=== PATIENT | male | born 1955 | race Caucasian/White ===

== ENCOUNTER 2016-11-04 09:37 | Outpatient (CLI) | payer MEDICARE ==
[2016-11-04 12:29] LABS: #Basophils 0.1 thou/uL (0.0-0.2); #Lymphocytes 2.7 thou/uL (1.20-3.40); #Monocytes 0.7 thou/uL (0.11-0.59); #Neutrophils 4.4 thou/uL (1.40-6.50); %Basophils 1.2 % (0.0-1.0); %Eosinophils 10.8 % (0.0-10.0); %Lymphocytes 30.2 % (21.0-51.0); %Monocytes 8.2 % (0.0-10.0); Hematocrit 37.4 % (42.0-52.0); Mean Platelet Volume 6.4 fL (7.4-10.4); Red Blood Cell (RBC) Count 3.82 mill/uL (4.70-6.10)
[2016-11-04 12:51] LABS: ALT (SGPT) 24 U/L (0-55); AST (SGOT) 19 U/L (5-34); Alkaline Phosphatase 74 U/L (40-150); Anion Gap 14 mmol/L (10-20); BUN (Urea Nitrogen) 37 mg/dL (8.4-25.7); Bilirubin, Total 0.4 mg/dL (0.2-1.2); Calc. Creatinine Clearance 0 mL/min (70-130); Calcium 8.8 mg/dL (7.8-10.44); Carbon Dioxide 25 mmol/L (22-29); Chloride 104 mmol/L (98-107); Estimated GFR-MDRD 26; Globulin 2.9 g/dL (2.4-3.5); LDL Cholesterol, Calculated 72 mg/dL; Protein, Total 6.5 g/dL (6.0-8.3)
[2016-11-04 12:56] LABS: Hemoglobin A1c 8.7 % (4.0-6.0)
== END 2016-11-04 09:38 | disposition home or self-care (01) ==
LOC: NAVSJIPCSP 09:37
PROVIDERS: ATTEND Internal Medicine
DX: E78.5 Hyperlipidemia, unspecified (principal); E11.59 Type 2 diabetes mellitus with other circulatory complications; Z79.899 Other long term (current) drug therapy
CPT/HCPCS: 36415; 80053; 80061; 83036; 85025

== ENCOUNTER 2017-02-05 11:40 | Outpatient (CLI) | payer MEDICAID, MEDICARE ==
[2017-02-05 12:45] LABS: Hemoglobin A1c 7.7 % (4.0-6.0)
[2017-02-05 12:58] LABS: Anion Gap 14 mmol/L (10-20); BUN (Urea Nitrogen) 28 mg/dL (8.4-25.7); Calc. Creatinine Clearance 0 mL/min (70-130); Carbon Dioxide 25 mmol/L (22-29); Chloride 105 mmol/L (98-107); Cholesterol 117 mg/dL (< 200 Desired); Estimated GFR-MDRD 29; Glucose 173 mg/dL (70-105); HDL Cholesterol 29 mg/dL (>60 Neg Risk); LDL Cholesterol, Calculated 61 mg/dL; Potassium 5.2 mmol/L (3.5-5.1); Sodium 139 mmol/L (136-145); Triglycerides 137 mg/dL (Less than 150)
== END 2017-02-05 11:41 | disposition home or self-care (01) ==
LOC: NAVSJIPCSP 11:40
PROVIDERS: ATTEND Internal Medicine
DX: E11.59 Type 2 diabetes mellitus with other circulatory complications (principal); N18.3 Chronic kidney disease, stage 3 (moderate); E78.5 Hyperlipidemia, unspecified
CPT/HCPCS: 36415; 80048; 80061; 83036

== ENCOUNTER 2017-02-10 10:40 | Outpatient (CLI) | payer MEDICARE ==
--- NOTE | 2017-02-10 13:53 | RAD ---
RIGHT SHOULDER 3 VIEWS: DATE: 02/01/15. INDICATION: Recent onset pain subsequent to fall. FINDINGS: There is degenerative change of the right shoulder, similar to 01/31/15 exam. No acute fracture or d islocation identified. IMPRESSION: No acute osseous abnormality. POS: FABIAN
== END 2017-02-10 10:41 | disposition home or self-care (01) ==
LOC: NAV RAD 10:40
PROVIDERS: ATTEND Emergency Medicine
DX: M25.511 Pain in right shoulder (principal)

== ENCOUNTER 2017-04-29 13:02 | Outpatient (CLI) | payer MEDICARE ==
[2017-04-29 13:46] LABS: Anion Gap 16 mmol/L (10-20); BUN (Urea Nitrogen) 31 mg/dL (8.4-25.7); Calc. Creatinine Clearance 0 mL/min (70-130); Calcium 8.5 mg/dL (7.8-10.44); Carbon Dioxide 23 mmol/L (22-29); Cardiac Risk 3.6 (Less than 4.5); Chloride 104 mmol/L (98-107); Cholesterol 135 mg/dl (< 200 Desired); Estimated GFR-MDRD 27; Glucose 263 mg/dL (70-105); HDL Cholesterol 37 mg/dL (>60 Neg Risk); LDL Cholesterol, Calculated 49 mg/dL; Potassium 4.8 mmol/L (3.5-5.1); Sodium 138 mmol/L (136-145); Triglycerides 245 mg/dL (Less than 150)
[2017-04-29 14:09] LABS: Hemoglobin A1c 8.6 % (4.0-6.0)
== END 2017-04-29 13:03 | disposition home or self-care (01) ==
LOC: NAVSJIPCSP 13:02
PROVIDERS: ATTEND Internal Medicine
DX: E11.22 Type 2 diabetes mellitus with diabetic chronic kidney disease (principal); N18.3 Chronic kidney disease, stage 3 (moderate); E11.59 Type 2 diabetes mellitus with other circulatory complications; Z79.899 Other long term (current) drug therapy
CPT/HCPCS: 36415; 80048; 80061; 83036

== ENCOUNTER 2017-05-20 09:38 | Outpatient (CLI) | payer MEDICARE | END 2017-05-20 09:39 | disposition home or self-care (01) | LOC: NAV DTY OP 09:38 | PROVIDERS: ATTEND Internal Medicine | DX: E11.59 Type 2 diabetes mellitus with other circulatory complications (principal); E66.9 Obesity, unspecified | CPT/HCPCS: 97802 ==

== ENCOUNTER 2018-09-12 08:20 | Emergency (ER) | payer MEDICARE ==
[2018-09-12] MEDS ORDERED: Nitroglycerin 0.4 MG TAB (25 Tab Bottle) ONE (08:57)
[2018-09-12 09:08] LABS: #Basophils 0.1 thou/uL (0.0-0.2); #Eosinphils 0.4 thou/uL (0.0-0.7); #Lymphocytes 1.7 thou/uL (1.20-3.40); #Monocytes 0.7 thou/uL (0.11-0.59); #Neutrophils 6.1 thou/uL (1.40-6.50); %Basophils 1.3 % (0.0-1.0); %Eosinophils 4.7 % (0.0-10.0); %Lymphocytes 18.6 % (21.0-51.0); %Monocytes 8.2 % (0.0-10.0); %Neutrophils 67.2 % (42.0-75.0); Hemoglobin 10.8 g/dL (14.0-18.0); Mean Corpuscular HGB CONC 31.2 g/dL (32.0-36.0); Mean Corpuscular Hemoglobin 28.9 pg (27.0-31.0); Mean Corpuscular Volume 92.5 fL (78.0-98.0); Mean Platelet Volume 6.3 fL (7.4-10.4); Platelet Count 211 thou/uL (130-400); Red Blood Cell (RBC) Count 3.73 mill/uL (4.70-6.10)
[2018-09-12 09:21] LABS: ALT (SGPT) 13 U/L (8-55); AST (SGOT) 15 U/L (5-34); Albumin 3.9 g/dL (3.4-4.8); Alkaline Phosphatase 78 U/L (40-150); Anion Gap 16 mmol/L (10-20); BUN (Urea Nitrogen) 31 mg/dL (8.4-25.7); Bilirubin, Total 0.4 mg/dL (0.2-1.2); CK (CPK) 74 U/L (30-200); Calc. Creatinine Clearance 0 mL/min (70-130); Calcium 9.1 mg/dL (7.8-10.44); Carbon Dioxide 24 mmol/L (23-31); Chloride 103 mmol/L (98-107); Estimated GFR-MDRD 20; Globulin 3.7 g/dL (2.4-3.5); Glucose 207 mg/dL (80-115); Potassium 4.5 mmol/L (3.5-5.1); Protein, Total 7.6 g/dL (5.8-8.1); Sodium 138 mmol/L (136-145)
[2018-09-12 09:23] LABS: CKMB 1.6 ng/mL (0-6.6); Troponin I 0.026 ng/mL (< 0.028)
--- NOTE | 2018-09-12 11:29 | RAD ---
CHEST PA AND LATERAL 2 VIEWS: HISTORY: A 63-year-old male with a history of chest pain. COMPARISON: 09/16/2017. FINDINGS: Postop midline sternotomy and coronary artery bypass changes. Mild cardiomegaly. Mild bilateral vas cular congestion, but no confluent pneumonia, overt edema, or pleural effusion. IMPRESSION: Mild cardiomegaly with postop midline sternotomy and mild vascular congestion. No pneumonia, edema, pleural effusion, or other acute process. Stable from prior study. POS: FABIAN
== END 2018-09-12 10:58 | disposition short-term general hospital (02) ==
LOC: NAV ERS 08:20
DX: R07.2 Precordial pain (principal); E66.9 Obesity, unspecified; I48.91 Unspecified atrial fibrillation; K21.9 Gastro-esophageal reflux disease without esophagitis; I25.10 Atherosclerotic heart disease of native coronary artery without angina pectoris; I50.9 Heart failure, unspecified; I13.2 Hypertensive heart and chronic kidney disease with heart failure and with stage 5 chronic kidney disease, or end stage renal disease; N18.6 End stage renal disease; E78.5 Hyperlipidemia, unspecified; M10.9 Gout, unspecified; Z87.891 Personal history of nicotine dependence; Z86.73 Personal history of transient ischemic attack (TIA), and cerebral infarction without residual deficits; Z79.899 Other long term (current) drug therapy; Z79.891 Long term (current) use of opiate analgesic; Z79.82 Long term (current) use of aspirin
CPT/HCPCS: 36415; 71046; 80053; 82553; 84484; 85025; 93005

== ENCOUNTER 2019-03-20 21:31 | Emergency (ER) | payer MEDICARE, MEDICAID ==
--- NOTE | 2019-03-20 22:41 | RAD ---
EXAM: Right Rib series with chest x-ray HISTORY: Rib pain after a dog jumped onto his chest 2 days ago COMPARISON: None FINDINGS: Single view of the chest shows an enlarged cardiomediastinal silhouette. The patient is st atus post sternotomy. There is no evidence of consolidation, mass, or pleural effusion. Multiple views of the right ribs shows no evidence of displaced rib fracture. No underlying pleural t hickening or pneumothorax are seen. IMPRESSION: 1. No evidence of displaced rib fracture. 2. No evidence of acute cardiopulmonary disease.
[2019-03-20] MEDS ORDERED: Lidocaine 5% Patch TD SCH (22:45)
[2019-03-21] MEDS ORDERED: Lidocaine Patch Removal 1 EACH TOP SCH (10:45)
== END 2019-03-20 23:09 | disposition home or self-care (01) ==
LOC: NAV ERS 21:31
DX: S20.211A Contusion of right front wall of thorax, initial encounter (principal); I25.10 Atherosclerotic heart disease of native coronary artery without angina pectoris; I25.2 Old myocardial infarction; I48.91 Unspecified atrial fibrillation; K21.9 Gastro-esophageal reflux disease without esophagitis; E11.9 Type 2 diabetes mellitus without complications; E78.5 Hyperlipidemia, unspecified; M10.9 Gout, unspecified; Z86.73 Personal history of transient ischemic attack (TIA), and cerebral infarction without residual deficits; Z87.891 Personal history of nicotine dependence; Z79.899 Other long term (current) drug therapy; Z79.82 Long term (current) use of aspirin; W54.1XXA Struck by dog, initial encounter

== ENCOUNTER 2019-07-02 22:04 | Emergency (ER) | payer MEDICARE, MEDICAID ==
--- NOTE | 2019-07-02 22:33 | RAD ---
XR Ribs Lt>=2 View W/PA CXR HISTORY: Fall with left rib pain. COMPARISON: None. FINDINGS: Heart size is enlarged with postop sternotomy changes. The lungs are clear of any infiltrat cale process. No pneumothorax or pleural effusion. No rib fractures are identified. IMPRESSION: No evidence of fracture.
[2019-07-02 23:32] LABS: #Basophils 0.1 thou/uL (0.0-0.2); #Eosinphils 0.4 thou/uL (0.0-0.7); #Lymphocytes 1.6 thou/uL (1.20-3.40); #Monocytes 0.6 thou/uL (0.11-0.59); #Neutrophils 5.4 thou/uL (1.40-6.50); %Basophils 1.1 % (0.0-1.0); %Eosinophils 4.8 % (0.0-10.0); %Lymphocytes 20.2 % (21.0-51.0); %Monocytes 6.8 % (0.0-10.0); %Neutrophils 67.2 % (42.0-75.0); Mean Corpuscular HGB CONC 32.3 g/dL (32.0-36.0); Mean Corpuscular Hemoglobin 30.1 pg (27.0-31.0); Mean Corpuscular Volume 93.2 fL (78.0-98.0); Mean Platelet Volume 6.3 fL (7.4-10.4); Platelet Count 149 thou/uL (130-400); RBC Distribution Width 14.8 % (11.5-14.5); White Blood Cell (WBC) Count 8.1 thou/uL (4.8-10.8)
[2019-07-02] MEDS ORDERED: HYDROcodone/Acetaminophen 5/325 mg Tablet ONE (23:47)
[2019-07-02 23:50] LABS: ALT (SGPT) 19 U/L (8-55); AST (SGOT) 22 U/L (5-34); Albumin 3.6 g/dL (3.4-4.8); Alkaline Phosphatase 86 U/L (40-150); Anion Gap 20 mmol/L (10-20); BUN (Urea Nitrogen) 51 mg/dL (8.4-25.7); Bilirubin, Total 0.4 mg/dL (0.2-1.2); Calc. Creatinine Clearance 0 mL/min (70-130); Carbon Dioxide 23 mmol/L (23-31); Chloride 100 mmol/L (98-107); Estimated GFR-MDRD 14; Globulin 3.6 g/dL (2.4-3.5); Glucose 265 mg/dL (80-115); Potassium 4.9 mmol/L (3.5-5.1); Protein, Total 7.2 g/dL (5.8-8.1); Sodium 138 mmol/L (136-145)
[2019-07-02 23:55] LABS: INR-International Normal Ratio 1.2; Prothrombin Time 15.1 SEC (12.0-14.7)
[2019-07-03] MEDS ORDERED: Sodium Chloride 0.9% 250 ML 250 ML ONE (02:00)
--- NOTE | 2019-07-03 08:09 | CT ---
PRELIMINARY REPORT/[facility]/EMERGENCY AFTER HOURS PROCEDURE: EXAM: CT Chest Without Contrast EXAM DATE/TIME: 07/03/2019 12:19 AM CLINICAL HISTORY: 64 years old, male; Injury or trauma; Initial encounter; Luq; Blunt trauma (contusions or hematomas); Injury date: 07/02/2019; Injury details: Fall; Pain to left ribs; SOB; Prior surgery; Surgery date: 6 + months; Surgery type: Triple bypass in 2011; Patient HX: Diabetic; Gfr 14; Creatine 4.26 TECHNIQUE: Imaging protocol: Computed tomography of the chest without contrast. Radiation optimization: All CT scans at this facility use at least one of these dose optimization pawel hniques: automated exposure control; mA and/or kV adjustment per patient size (includes targeted exam s where dose is matched to clinical indication); or iterative reconstruction. COMPARISON: No relevant prior studies available. FINDINGS: Lungs: Normal. Pleural space: Normal. Heart: Changes of prior sternotomy and CABG. Mild four-chamber cardiac enlargement. Aorta: No aortic aneurysm. Lymph nodes: Several small lymph nodes within the mediastinum, likely reactive. Bones/joints: Multilevel thoracic spine degenerative changes. Soft tissues: Normal. IMPRESSION: No acute cardiopulmonary abnormality. EXAM: CT Abdomen and Pelvis Without Contrast EXAM DATE/TIME: 07/03/2019 12:19 AM CLINICAL HISTORY: 64 years old, male; Injury or trauma; Initial encounter; Luq; Blunt trauma (contusions or hematomas); Injury date: 07/02/2019; Injury details: Fall; Pain to left ribs; SOB; Prior surgery; Surgery date: 6 + months; Surgery type: Triple bypass in 2011; Patient HX: Diabetic; Gfr 14; Creatine 4.26 TECHNIQUE: Imaging protocol: Computed tomography of the abdomen and pelvis without contrast. COMPARISON: No relevant prior studies available. FINDINGS: Liver: Normal. Gallbladder and bile ducts: Normal Pancreas: Normal. Spleen: Normal. Adrenals: Normal. Kidneys and ureters: Multiple bilateral simple renal cysts, the largest on the left measuring approxi mately 5.7 cm in diameter. Stomach and bowel: Colonic diverticulosis. Appendix: Appendix is normal. Intraperitoneal space: Unremarkable. No free air. No significant fluid collection. Vasculature: Atherosclerotic disease of the abdominal aorta and iliac arteries. Lymph nodes: Unremarkable. No enlarged lymph nodes. Bladder: Unremarkable as visualized. Reproductive: Unremarkable as visualized. Bones/joints: Degenerative changes of the hips and sacroiliac joints. Multilevel lumbar spine degener ative changes. Soft tissues: Small fat containing umbilical hernia. IMPRESSION: No acute abdominal or pelvic abnormality. Thank you for allowing us to participate in the care of your patient. Dictated and Authenticated by: Lane Barksdale MD 07/03/2019 1:36 AM Central Time ([place] & [place]) FINAL REPORT CT CHEST AND ABDOMEN AND PELVIS WITHOUT IV CONTRAST: Date: 07/03/19 FINDINGS/IMPRESSION: CT chest shows no evidence of acute injury or abnormality. CT abdomen and pelvis shows numerous renal cystic lesions. Several of these cystic lesions show some rim calcification. There is no hydronephrosis. There is no evidence of solid organ injury. Bowel loop s unremarkable. No free fluid. Bony pelvis appears intact. No evidence of acute injury or abnormality. I am in agreement with the preliminary report issued by [facility]. CT THORACIC AND LUMBAR SPINE: Sagittal and coronal images of thoracic and lumbar spine obtained. There are moderate degenerative ch anges with bridging osteophytes in the mid and lower thoracic spine. No compression deformity. No tommy dence of acute fracture. IMPRESSION: No evidence of thoracic or lumbar spine fracture. POS: OFF
== END 2019-07-03 02:25 | disposition home or self-care (01) ==
LOC: NAV ERS 22:04
DX: S20.212A Contusion of left front wall of thorax, initial encounter (principal); N17.9 Acute kidney failure, unspecified; I25.10 Atherosclerotic heart disease of native coronary artery without angina pectoris; I50.9 Heart failure, unspecified; I13.2 Hypertensive heart and chronic kidney disease with heart failure and with stage 5 chronic kidney disease, or end stage renal disease; N18.6 End stage renal disease; E11.22 Type 2 diabetes mellitus with diabetic chronic kidney disease; I25.2 Old myocardial infarction; I49.9 Cardiac arrhythmia, unspecified; J45.909 Unspecified asthma, uncomplicated; I48.91 Unspecified atrial fibrillation; E78.5 Hyperlipidemia, unspecified; E78.00 Pure hypercholesterolemia, unspecified; K21.9 Gastro-esophageal reflux disease without esophagitis; M10.9 Gout, unspecified; Z99.2 Dependence on renal dialysis; Z87.891 Personal history of nicotine dependence; Z86.73 Personal history of transient ischemic attack (TIA), and cerebral infarction without residual deficits; W01.0XXA Fall on same level from slipping, tripping and stumbling without subsequent striking against object, initial encounter
CPT/HCPCS: 36415; 71250; 74177; 80053; 85025; 85610; J7050

== ENCOUNTER 2019-09-10 11:30 | Outpatient (CLI) | payer MEDICARE, MEDICAID ==
--- NOTE | 2019-09-10 11:59 | RAD ---
EXAM: Lumbar spine 3 views: HISTORY: Low back pain with left lower extremity radiculopathy COMPARISON: MRI, 08/17/2019 FINDINGS: No evidence for acute fracture or dislocation involving the visualized spine. There are disc osteophytosis and facet arthrosis changes. No evidence for malalignment. No evidence for a bone lesion. IMPRESSION: Severe spondylosis.. No significant acute process.
== END 2019-09-10 11:31 | disposition home or self-care (01) ==
LOC: NAV RAD 11:30
PROVIDERS: ATTEND Nurse Practitioner Adult Health
DX: M54.5 Low back pain (principal); M47.816 Spondylosis without myelopathy or radiculopathy, lumbar region
CPT/HCPCS: 72100

== ENCOUNTER 2019-10-13 21:37 | Emergency (ER) | payer MEDICARE, MEDICAID ==
[2019-10-13] MEDS ORDERED: Acetaminophen 325 MG TAB ONE (22:24)
--- NOTE | 2019-10-13 23:25 | RAD ---
EXAM: Two views chest PROVIDED CLINICAL HISTORY: Cough COMPARISON: 08/17/2019 FINDINGS: Postsurgical changes related to CABG are again noted. Cardiac silhouette is magnified by projection. The pulmonary vasculature is within normal limits. The lungs are clear. The osseous structures have a normal appearance. Chest is stable when compared to the prior study. IMPRESSION: No acute cardiopulmonary process.
[2019-10-13] MEDS ORDERED: Oseltamivir 6 MG/ML ORAL SUSP ONE ×2 (23:40→23:49)
[2019-10-13] MEDS ORDERED: Promethazine 25 MG TAB ONE (23:50)
== END 2019-10-13 23:55 | disposition home or self-care (01) ==
LOC: NAV ERS 21:37
DX: B34.9 Viral infection, unspecified (principal); I13.2 Hypertensive heart and chronic kidney disease with heart failure and with stage 5 chronic kidney disease, or end stage renal disease; I25.10 Atherosclerotic heart disease of native coronary artery without angina pectoris; I50.9 Heart failure, unspecified; N18.6 End stage renal disease; I25.2 Old myocardial infarction; I49.9 Cardiac arrhythmia, unspecified; I48.91 Unspecified atrial fibrillation; K21.9 Gastro-esophageal reflux disease without esophagitis; E78.5 Hyperlipidemia, unspecified; E78.00 Pure hypercholesterolemia, unspecified; M10.9 Gout, unspecified; J45.909 Unspecified asthma, uncomplicated; Z87.891 Personal history of nicotine dependence; Z79.899 Other long term (current) drug therapy; Z79.82 Long term (current) use of aspirin; Z79.4 Long term (current) use of insulin; Z99.2 Dependence on renal dialysis; Z86.73 Personal history of transient ischemic attack (TIA), and cerebral infarction without residual deficits
CPT/HCPCS: 71046; 87804; Q0169

== ENCOUNTER 2019-11-04 15:35 | Outpatient (CLI) | payer MEDICARE, MEDICAID ==
--- NOTE | 2019-11-04 15:57 | RAD ---
EXAM: 3 views of the right shoulder HISTORY: Shoulder pain COMPARISON: None FINDINGS: There is no evidence of acute fracture or dislocation. No degenerative changes are present. No soft tissue swelling is seen. The visualized thorax is unremarkable. IMPRESSION: No evidence of acute osseous abnormality.
== END 2019-11-04 15:36 | disposition home or self-care (01) ==
LOC: NAV RAD 15:35
PROVIDERS: ATTEND Internal Medicine
DX: M25.511 Pain in right shoulder (principal)

== ENCOUNTER 2020-05-02 21:32 | Emergency (ER) | payer MEDICARE, MEDICAID, OTHER ==
[2020-05-02] MEDS ORDERED: Acetaminophen 500 MG TAB ONE (21:44)
[2020-05-02] MEDS ORDERED: Ondansetron PF 4 MG/2 ML Vial ONE (21:45)
--- NOTE | 2020-05-02 22:08 | RAD ---
PORTABLE CHEST: 05/02/20 HISTORY: Chest pain. COMPARISON: 11/21/19 chest film. Cardiomegaly and postop sternotomy change again noted. There is mild vascular congestion. No infiltra te or effusion. IMPRESSION: Cardiomegaly and mild vascular congestion. POS: AGW
[2020-05-02 22:13] LABS: Bilirubin Negative (Negative); Blood, Urine Trace (Negative); Clarity Clear (Clear); Glucose, Urine (Dipstick) Negative (Negative); Ketone, Urine Negative (Negative); Leukocyte Negative (Negative); Nitrite Negative (Negative); Protein, Urine (Dipstick) 100 mg/dL (Neg-Trace); Specific Gravity, Urine 1.015 (1.005-1.030); Urobilinogen 0.2 mg/dL (Less than 2); pH, Urine 5.5 (5.0-9.0)
[2020-05-02 22:17] LABS: ALT (SGPT) 62 U/L (8-55); AST (SGOT) 89 U/L (5-34); Albumin 3.8 g/dL (3.4-4.8); Alkaline Phosphatase 114 U/L (40-110); Anion Gap 22 mmol/L (10-20); BUN (Urea Nitrogen) 41 mg/dL (8.4-25.7); Bilirubin, Total 0.5 mg/dL (0.2-1.2); Calc. Creatinine Clearance 0 mL/min (70-130); Calcium 9.2 mg/dL (7.8-10.44); Carbon Dioxide 20 mmol/L (23-31); Chloride 100 mmol/L (98-107); Estimated GFR-MDRD 16; Globulin 3.8 g/dL (2.4-3.5); Glucose 171 mg/dL (80-115); Potassium 4.1 mmol/L (3.5-5.1); Protein, Total 7.6 g/dL (5.8-8.1); Sodium 138 mmol/L (136-145)
[2020-05-02 22:18] LABS: Bacteria/HPF None Seen HPF (None Seen); Mucous/LPF Rare LPF (<2+); RBC/HPF 0-3 HPF (0-3)
[2020-05-02 22:25] LABS: Hemoglobin 11.2 g/dL (14.0-18.0); Mean Corpuscular HGB CONC 30.5 g/dL (32.0-36.0); Mean Corpuscular Hemoglobin 30.2 pg (27.0-31.0); Mean Corpuscular Volume 99.2 fL (78.0-98.0); Red Blood Cell (RBC) Count 3.72 mill/uL (4.70-6.10); White Blood Cell (WBC) Count 8.3 thou/uL (4.8-10.8)
[2020-05-02 22:26] LABS: Mean Platelet Volume 6.7 fL (7.4-10.4); Platelet Count 174 thou/uL (130-400); RBC Distribution Width 15.2 % (11.5-14.5)
[2020-05-02 22:27] LABS: #Basophils 0.1 thou/uL (0.0-0.2); #Eosinphils 0.1 thou/uL (0.0-0.7); #Lymphocytes 0.3 thou/uL (1.20-3.40); #Monocytes 0.1 thou/uL (0.11-0.59); #Neutrophils 7.7 thou/uL (1.40-6.50); %Basophils 0.9 % (0.0-1.0); %Eosinophils 0.7 % (0.0-10.0); %Lymphocytes 4.1 % (21.0-51.0); %Monocytes 1.7 % (0.0-10.0); %Neutrophils 92.7 % (42.0-75.0)
[2020-05-02 22:38] LABS: CKMB 2.1 ng/mL (0-6.6)
[2020-05-02] MEDS ORDERED: Sodium Chloride 0.9% 500 ML ONE (22:47)
[2020-05-02] MEDS ORDERED: cefTRIAXone\\ROCEPHIN 1 GM VIAL ONE (22:48)
[2020-05-02] MEDS ORDERED: Sodium Chloride 0.9% 100 ML ONE (22:48)
[2020-05-02] MEDS ORDERED: Aspirin Chewable 81 MG TAB ONE (22:55)
== END 2020-05-02 23:03 | disposition home or self-care (01) ==
LOC: NAV ERS 21:32
DX: R07.9 Chest pain, unspecified (principal); R74.0 Nonspecific elevation of levels of transaminase and lactic acid dehydrogenase [LDH]; R50.9 Fever, unspecified; Z20.828 Contact with and (suspected) exposure to other viral communicable diseases; I25.10 Atherosclerotic heart disease of native coronary artery without angina pectoris; I13.2 Hypertensive heart and chronic kidney disease with heart failure and with stage 5 chronic kidney disease, or end stage renal disease; I50.9 Heart failure, unspecified; N18.6 End stage renal disease; I25.2 Old myocardial infarction; K21.9 Gastro-esophageal reflux disease without esophagitis; E78.5 Hyperlipidemia, unspecified; M10.9 Gout, unspecified; Z86.73 Personal history of transient ischemic attack (TIA), and cerebral infarction without residual deficits; F32.9 Major depressive disorder, single episode, unspecified; Z87.891 Personal history of nicotine dependence; Z79.899 Other long term (current) drug therapy; Z79.82 Long term (current) use of aspirin; Z79.4 Long term (current) use of insulin
CPT/HCPCS: 36416; 71045; 80053; 81003; 81015; 82553; 83605; 83880; 84484; 85025; 87040; 87086; 93005; 94760; 96374; 96375; J0696; J2405; J3490; J7030

== ENCOUNTER 2020-05-27 20:18 | Emergency (ER) | payer MEDICARE, MEDICAID ==
[2020-05-27 21:02] LABS: #Basophils 0.1 thou/uL (0.0-0.2); #Eosinphils 0.3 thou/uL (0.0-0.7); #Lymphocytes 1.8 thou/uL (1.20-3.40); #Monocytes 0.6 thou/uL (0.11-0.59); #Neutrophils 6.3 thou/uL (1.40-6.50); %Basophils 0.9 % (0.0-1.0); %Eosinophils 2.9 % (0.0-10.0); %Lymphocytes 19.7 % (21.0-51.0); %Monocytes 6.6 % (0.0-10.0); %Neutrophils 69.8 % (42.0-75.0); Hemoglobin 9.6 g/dL (14.0-18.0); Mean Corpuscular HGB CONC 30.7 g/dL (32.0-36.0); Mean Corpuscular Hemoglobin 29.7 pg (27.0-31.0); Mean Corpuscular Volume 96.6 fL (78.0-98.0); Platelet Count 161 thou/uL (130-400); RBC Distribution Width 14.9 % (11.5-14.5); Red Blood Cell (RBC) Count 3.23 mill/uL (4.70-6.10); White Blood Cell (WBC) Count 9.1 thou/uL (4.8-10.8)
[2020-05-27] MEDS ORDERED: Aspirin Chewable 81 MG TAB ONE (21:07)
[2020-05-27 21:19] LABS: ALT (SGPT) 14 U/L (8-55); AST (SGOT) 16 U/L (5-34); Albumin 3.7 g/dL (3.4-4.8); Alkaline Phosphatase 85 U/L (40-110); Anion Gap 16 mmol/L (10-20); BUN (Urea Nitrogen) 43 mg/dL (8.4-25.7); Bilirubin, Total 0.4 mg/dL (0.2-1.2); Calc. Creatinine Clearance 0 mL/min (70-130); Calcium 8.7 mg/dL (7.8-10.44); Carbon Dioxide 25 mmol/L (23-31); Chloride 101 mmol/L (98-107); Estimated GFR-MDRD 15; Globulin 3.5 g/dL (2.4-3.5); Glucose 166 mg/dL (80-115); Protein, Total 7.2 g/dL (5.8-8.1); Sodium 138 mmol/L (136-145)
[2020-05-27 21:37] LABS: CKMB 1.1 ng/mL (0-6.6)
[2020-05-27] MEDS ORDERED: Enoxaparin Sodium 100 MG/ML SYRINGE ONE (22:08)
--- NOTE | 2020-05-27 22:09 | RAD ---
TWO VIEWS OF THE CHEST: 05/27/20 COMPARISON: 05/02/20. HISTORY: Chest pain with shortness of breath. FINDINGS: Stable midline sternotomy wires and prominence of the cardiac silhouette. Stable mild pulmonary vascu lar prominence. No pneumothorax, pleural fluid, focal consolidation, or alveolar edema. IMPRESSION: Prominent cardiac silhouette with pulmonary vascular congestion. POS: CARY
[2020-05-27 23:51] LABS: Bilirubin Negative (Negative); Blood, Urine Negative (Negative); Clarity Clear (Clear); Glucose, Urine (Dipstick) Negative (Negative); Ketone, Urine Negative (Negative); Leukocyte Negative (Negative); Nitrite Negative (Negative); Protein, Urine (Dipstick) 100 mg/dL (Neg-Trace)
[2020-05-27 23:55] LABS: Bacteria/HPF None Seen HPF (None Seen); RBC/HPF None Seen HPF (0-3); Squamous Epithelial None Seen HPF (0-3); WBC/HPF None Seen HPF (0-3)
[2020-05-28 00:47] LABS: Troponin I 0.037 ng/mL (< 0.028)
[2020-05-28 03:48] LABS: Troponin I 0.034 ng/mL (< 0.028)
== END 2020-05-28 04:46 | disposition short-term general hospital (02) ==
LOC: NAV ERS 20:18
DX: I24.9 Acute ischemic heart disease, unspecified (principal); I13.2 Hypertensive heart and chronic kidney disease with heart failure and with stage 5 chronic kidney disease, or end stage renal disease; N18.6 End stage renal disease; I50.9 Heart failure, unspecified; I25.10 Atherosclerotic heart disease of native coronary artery without angina pectoris; I25.2 Old myocardial infarction; I48.91 Unspecified atrial fibrillation; K21.9 Gastro-esophageal reflux disease without esophagitis; E11.9 Type 2 diabetes mellitus without complications; E78.5 Hyperlipidemia, unspecified; M10.9 Gout, unspecified; J45.909 Unspecified asthma, uncomplicated; F32.9 Major depressive disorder, single episode, unspecified; Z79.4 Long term (current) use of insulin; Z79.82 Long term (current) use of aspirin; Z79.51 Long term (current) use of inhaled steroids; Z79.899 Other long term (current) drug therapy; Z87.891 Personal history of nicotine dependence
CPT/HCPCS: 71046; 80053; 81003; 81015; 82553; 83880; 84443; 84484; 85025; 85379; 87070; 87205; 93005; 96372; J1650

== ENCOUNTER 2021-02-03 17:00 | Inpatient (IN) | payer MEDICARE, MEDICAID ==
[2021-02-03 17:27] VITALS: BMI 37.6
[2021-02-03] MEDS ORDERED: Ondansetron ODT 4 MG TAB PO PRN (18:41)
[2021-02-03] MEDS ORDERED: Benzonatate 100 MG CAP PO PRN (18:44)
[2021-02-03] MEDS ORDERED: Meclizine HCl 25 MG TAB PO PRN (18:44)
[2021-02-03] MEDS ORDERED: Furosemide 40 MG TAB PO PRN (18:44)
[2021-02-03] MEDS ORDERED: Dextrose 50% Abboject 50 ML SYRINGE SLOW IVP PRN (18:47)
[2021-02-03] MEDS ORDERED: Loratadine 10 MG TAB PO PRN (18:54)
[2021-02-03] MEDS ORDERED: Ventolin HFA Inhaler 60 PUFF INHALER INH PRN (19:03)
[2021-02-03 20:34] LABS: Bilirubin Negative (Negative); Blood, Urine Negative (Negative); Clarity Clear (Clear); Glucose, Urine (Dipstick) Negative (Negative); Ketone, Urine Negative (Negative); Leukocyte Negative (Negative); Nitrite Negative (Negative); Protein, Urine (Dipstick) > or equal to 300 mg/dL (Neg-Trace); Urobilinogen 0.2 mg/dL (Less than 2)
[2021-02-03 20:56] LABS: Bacteria/HPF Rare-Few HPF (None Seen); RBC/HPF 0-3 HPF (0-3); Squamous Epithelial 0-3 HPF (0-3); WBC/HPF None Seen HPF (0-3)
[2021-02-03] MEDS ORDERED: Famotidine 20 MG TAB PO SCH (21:00)
[2021-02-03] MEDS: Lantus 1000 UNITS/10 ML VIAL SC SCH (21:24)
[2021-02-03] MEDS: Rosuvastatin 10 MG TAB PO SCH (21:25)
[2021-02-03] MEDS: hydrALAZINE 25 MG TAB PO SCH (21:26)
[2021-02-03] MEDS: levETIRAcetam 500 MG TAB PO SCH (21:26)
[2021-02-03] MEDS: Famotidine 20 MG TAB PO SCH (21:26)
[2021-02-03] MEDS: Gabapentin 300 MG CAP PO SCH (21:26)
[2021-02-04] MEDS: Acetaminophen/Codeine 30-300mg Tablet PO PRN ×2 (05:40→14:50)
[2021-02-04 05:46] LABS: ALT (SGPT) Less than 6 U/L (8-55); AST (SGOT) 12 U/L (5-34); Albumin 2.9 g/dL (3.4-4.8); Alkaline Phosphatase 77 U/L (40-110); Anion Gap 13 mmol/L (10-20); BUN (Urea Nitrogen) 41 mg/dL (8.4-25.7); Bilirubin, Total 0.5 mg/dL (0.2-1.2); Calc. Creatinine Clearance 41 mL/min (70-130); Calcium 8.2 mg/dL (7.8-10.44); Carbon Dioxide 21 mmol/L (23-31); Chloride 104 mmol/L (98-107); Glucose 118 mg/dL (80-115); Potassium 4.5 mmol/L (3.5-5.1); Protein, Total 5.9 g/dL (5.8-8.1); Sodium 133 mmol/L (136-145)
[2021-02-04 05:58] LABS: #Basophils 0.1 thou/uL (0.0-0.2); #Eosinphils 0.2 thou/uL (0.0-0.7); #Monocytes 0.7 thou/uL (0.11-0.59); #Neutrophils 5.2 thou/uL (1.40-6.50); %Basophils 0.9 % (0.0-1.0); %Eosinophils 2.3 % (0.0-10.0); %Lymphocytes 14.4 % (21.0-51.0); %Monocytes 9.8 % (0.0-10.0); %Neutrophils 72.6 % (42.0-75.0); Hemoglobin 7.3 g/dL (14.0-18.0); Hypochromia SLIGHT = 6-15 cells (100X) (0-5/hpf); MDiff Complete? YES; Macrocytosis SLIGHT = 6-15 cells (100X) (0-5/hpf); Mean Corpuscular HGB CONC 29.3 g/dL (32.0-36.0); Mean Corpuscular Hemoglobin 29.3 pg (27.0-31.0); Mean Platelet Volume 6.6 fL (7.4-10.4); Platelet Count 146 thou/uL (130-400); Platelet Morphology Comment Appears Adequate; RBC Distribution Width 16.2 % (11.5-14.5); White Blood Cell (WBC) Count 7.1 thou/uL (4.8-10.8)
[2021-02-04] MEDS: Lactinex Tablet PO SCH (08:35)
[2021-02-04] MEDS: Ubidecarenone 50 MG CAP PO SCH (08:35)
[2021-02-04] MEDS: Stress 600 With Zinc 1 TAB PO SCH (08:36)
[2021-02-04] MEDS: Amlodipine 5 MG TAB PO SCH (08:36)
[2021-02-04] MEDS: levETIRAcetam 500 MG TAB PO SCH ×2 (08:36→21:08)
[2021-02-04] MEDS: hydrALAZINE 25 MG TAB PO SCH ×2 (08:36→21:09)
[2021-02-04] MEDS: Tamsulosin HCl 0.4 MG CAP PO SCH (08:36)
[2021-02-04] MEDS: Citalopram 20 MG TAB PO SCH (08:37)
[2021-02-04] MEDS: Allopurinol 100 MG TAB PO SCH (08:37)
[2021-02-04] MEDS: Gabapentin 300 MG CAP PO SCH ×3 (08:38→21:08)
[2021-02-04] MEDS: Fluticasone Propionate Nasal Spray 16 gm Bottle NASAL SCH (08:38)
[2021-02-04] MEDS: Magnesium Oxide 400 MG TAB PO SCH (08:38)
[2021-02-04] MEDS: Glimepiride 2 MG TAB PO SCH (08:40)
[2021-02-04] MEDS: CRANBERRY 500 MG PO SCH (08:40)
[2021-02-04] MEDS: HumaLOG 300 UNITS/3 ML VIAL SC PRN (18:16)
[2021-02-04] MEDS: Lantus 1000 UNITS/10 ML VIAL SC SCH (21:07)
[2021-02-04] MEDS: Rosuvastatin 10 MG TAB PO SCH (21:09)
[2021-02-04] MEDS: Famotidine 20 MG TAB PO SCH (21:09)
[2021-02-05] MEDS: Ubidecarenone 50 MG CAP PO SCH (09:40)
[2021-02-05] MEDS: Acetaminophen/Codeine 30-300mg Tablet PO PRN ×2 (09:41→21:38)
[2021-02-05] MEDS: levETIRAcetam 500 MG TAB PO SCH ×2 (09:44→21:37)
[2021-02-05] MEDS: Stress 600 With Zinc 1 TAB PO SCH (09:44)
[2021-02-05] MEDS: Fluticasone Propionate Nasal Spray 16 gm Bottle NASAL SCH (09:44)
[2021-02-05] MEDS: Magnesium Oxide 400 MG TAB PO SCH (09:45)
[2021-02-05] MEDS: hydrALAZINE 25 MG TAB PO SCH ×2 (09:45→21:39)
[2021-02-05] MEDS: Allopurinol 100 MG TAB PO SCH (09:45)
[2021-02-05] MEDS: Citalopram 20 MG TAB PO SCH (09:45)
[2021-02-05] MEDS: Calcitriol 0.25 MCG CAP PO SCH (09:45)
[2021-02-05] MEDS: Gabapentin 300 MG CAP PO SCH ×3 (09:45→21:39)
[2021-02-05] MEDS: Amlodipine 5 MG TAB PO SCH (09:46)
[2021-02-05] MEDS: Tamsulosin HCl 0.4 MG CAP PO SCH (09:47)
[2021-02-05] MEDS: Glimepiride 2 MG TAB PO SCH (09:47)
[2021-02-05] MEDS: CRANBERRY 500 MG PO SCH (09:48)
[2021-02-05] MEDS: Lactinex Tablet PO SCH (09:49)
[2021-02-05] MEDS: HumaLOG 300 UNITS/3 ML VIAL SC PRN (17:52)
[2021-02-05] MEDS: Famotidine 20 MG TAB PO SCH (21:37)
[2021-02-05] MEDS: Rosuvastatin 10 MG TAB PO SCH (21:38)
[2021-02-05] MEDS: Lantus 1000 UNITS/10 ML VIAL SC SCH (21:39)
[2021-02-06] MEDS: Acetaminophen/Codeine 30-300mg Tablet PO PRN (08:44)
[2021-02-06] MEDS: levETIRAcetam 500 MG TAB PO SCH ×2 (08:46→21:28)
[2021-02-06] MEDS: Ubidecarenone 50 MG CAP PO SCH (08:46)
[2021-02-06] MEDS: Stress 600 With Zinc 1 TAB PO SCH (08:47)
[2021-02-06] MEDS: Gabapentin 300 MG CAP PO SCH ×3 (08:47→21:29)
[2021-02-06] MEDS: Citalopram 20 MG TAB PO SCH (08:48)
[2021-02-06] MEDS: hydrALAZINE 25 MG TAB PO SCH ×2 (08:48→21:27)
[2021-02-06] MEDS: Magnesium Oxide 400 MG TAB PO SCH (08:48)
[2021-02-06] MEDS: Glimepiride 2 MG TAB PO SCH (08:48)
[2021-02-06] MEDS: Allopurinol 100 MG TAB PO SCH (08:48)
[2021-02-06] MEDS: Amlodipine 5 MG TAB PO SCH (08:49)
[2021-02-06] MEDS: CRANBERRY 500 MG PO SCH (08:50)
[2021-02-06] MEDS: Lactinex Tablet PO SCH (08:50)
[2021-02-06] MEDS: Fluticasone Propionate Nasal Spray 16 gm Bottle NASAL SCH (08:50)
[2021-02-06] MEDS: Tamsulosin HCl 0.4 MG CAP PO SCH (08:51)
[2021-02-06] MEDS ORDERED: Ondansetron ODT 4 MG TAB SL PRN (10:45)
[2021-02-06] MEDS: HumaLOG 300 UNITS/3 ML VIAL SC PRN (12:44)
[2021-02-06] MEDS: Lantus 1000 UNITS/10 ML VIAL SC SCH (21:25)
[2021-02-06] MEDS: Rosuvastatin 10 MG TAB PO SCH (21:28)
[2021-02-06] MEDS: Famotidine 20 MG TAB PO SCH (21:29)
[2021-02-07 05:52] LABS: #Basophils 0.1 thou/uL (0.0-0.2); #Eosinphils 0.2 thou/uL (0.0-0.7); #Lymphocytes 1.4 thou/uL (1.20-3.40); #Monocytes 0.7 thou/uL (0.11-0.59); #Neutrophils 6.7 thou/uL (1.40-6.50); %Eosinophils 2.6 % (0.0-10.0); %Monocytes 7.7 % (0.0-10.0); %Neutrophils 73.8 % (42.0-75.0); Anion Gap 14 mmol/L (10-20); BUN (Urea Nitrogen) 39 mg/dL (8.4-25.7); Calc. Creatinine Clearance 35 mL/min (70-130); Calcium 8.4 mg/dL (7.8-10.44); Carbon Dioxide 22 mmol/L (23-31); Chloride 102 mmol/L (98-107); Glucose 133 mg/dL (80-115); Hemoglobin 7.3 g/dL (14.0-18.0); Mean Corpuscular HGB CONC 29.7 g/dL (32.0-36.0); Mean Corpuscular Hemoglobin 29.4 pg (27.0-31.0); Mean Corpuscular Volume 99.1 fL (78.0-98.0); Mean Platelet Volume 5.9 fL (7.4-10.4); Platelet Count 236 thou/uL (130-400); Potassium 4.6 mmol/L (3.5-5.1); RBC Distribution Width 16.7 % (11.5-14.5); Red Blood Cell (RBC) Count 2.49 mill/uL (4.70-6.10); Sodium 133 mmol/L (136-145); White Blood Cell (WBC) Count 9.1 thou/uL (4.8-10.8)
[2021-02-07] MEDS: Ubidecarenone 50 MG CAP PO SCH (09:21)
[2021-02-07] MEDS: levETIRAcetam 500 MG TAB PO SCH ×2 (09:22→21:22)
[2021-02-07] MEDS: Magnesium Oxide 400 MG TAB PO SCH (09:22)
[2021-02-07] MEDS: Stress 600 With Zinc 1 TAB PO SCH (09:22)
[2021-02-07] MEDS: Amlodipine 5 MG TAB PO SCH (09:23)
[2021-02-07] MEDS: Tamsulosin HCl 0.4 MG CAP PO SCH (09:23)
[2021-02-07] MEDS: hydrALAZINE 25 MG TAB PO SCH ×2 (09:24→21:24)
[2021-02-07] MEDS: Allopurinol 100 MG TAB PO SCH (09:24)
[2021-02-07] MEDS: Gabapentin 300 MG CAP PO SCH ×3 (09:24→21:23)
[2021-02-07] MEDS: Glimepiride 2 MG TAB PO SCH (09:24)
[2021-02-07] MEDS: Calcitriol 0.25 MCG CAP PO SCH (09:24)
[2021-02-07] MEDS: Citalopram 20 MG TAB PO SCH (09:24)
[2021-02-07] MEDS: Fluticasone Propionate Nasal Spray 16 gm Bottle NASAL SCH (09:25)
[2021-02-07] MEDS: Lactinex Tablet PO SCH (09:25)
[2021-02-07] MEDS: HumaLOG 300 UNITS/3 ML VIAL SC PRN (18:11)
[2021-02-07] MEDS: Lantus 1000 UNITS/10 ML VIAL SC SCH (21:21)
[2021-02-07] MEDS: Famotidine 20 MG TAB PO SCH (21:23)
[2021-02-07] MEDS: Rosuvastatin 10 MG TAB PO SCH (21:23)
[2021-02-07] MEDS: Acetaminophen/Codeine 30-300mg Tablet PO PRN (21:24)
[2021-02-08] MEDS: Ubidecarenone 50 MG CAP PO SCH (09:12)
[2021-02-08] MEDS: Lactinex Tablet PO SCH (09:12)
[2021-02-08] MEDS: Stress 600 With Zinc 1 TAB PO SCH (09:13)
[2021-02-08] MEDS: Amlodipine 5 MG TAB PO SCH (09:13)
[2021-02-08] MEDS: Gabapentin 300 MG CAP PO SCH ×3 (09:13→21:16)
[2021-02-08] MEDS: Tamsulosin HCl 0.4 MG CAP PO SCH (09:13)
[2021-02-08] MEDS: hydrALAZINE 25 MG TAB PO SCH ×2 (09:15→21:16)
[2021-02-08] MEDS: Glimepiride 2 MG TAB PO SCH (09:15)
[2021-02-08] MEDS: Allopurinol 100 MG TAB PO SCH (09:15)
[2021-02-08] MEDS: levETIRAcetam 500 MG TAB PO SCH ×2 (09:16→21:14)
[2021-02-08] MEDS: Magnesium Oxide 400 MG TAB PO SCH (09:16)
[2021-02-08] MEDS: Citalopram 20 MG TAB PO SCH (09:16)
[2021-02-08] MEDS: Fluticasone Propionate Nasal Spray 16 gm Bottle NASAL SCH ×2 (09:19→09:23)
[2021-02-08] MEDS: Acetaminophen/Codeine 30-300mg Tablet PO PRN ×2 (10:02→15:25)
[2021-02-08] MEDS: HumaLOG 300 UNITS/3 ML VIAL SC PRN (12:05)
[2021-02-08] MEDS: Rosuvastatin 10 MG TAB PO SCH (21:15)
[2021-02-08] MEDS: Famotidine 20 MG TAB PO SCH (21:15)
[2021-02-08] MEDS: Lantus 1000 UNITS/10 ML VIAL SC SCH (21:17)
[2021-02-09] MEDS: Acetaminophen/Codeine 30-300mg Tablet PO PRN ×2 (07:29→13:44)
[2021-02-09] MEDS: hydrALAZINE 25 MG TAB PO SCH ×2 (09:33→21:11)
[2021-02-09] MEDS: Glimepiride 2 MG TAB PO SCH (09:33)
[2021-02-09] MEDS: Tamsulosin HCl 0.4 MG CAP PO SCH (09:34)
[2021-02-09] MEDS: Magnesium Oxide 400 MG TAB PO SCH (09:34)
[2021-02-09] MEDS: Citalopram 20 MG TAB PO SCH (09:34)
[2021-02-09] MEDS: Lactinex Tablet PO SCH (09:35)
[2021-02-09] MEDS: levETIRAcetam 500 MG TAB PO SCH ×2 (09:35→21:09)
[2021-02-09] MEDS: Gabapentin 300 MG CAP PO SCH ×3 (09:36→21:11)
[2021-02-09] MEDS: Fluticasone Propionate Nasal Spray 16 gm Bottle NASAL SCH (09:37)
[2021-02-09] MEDS: Ubidecarenone 50 MG CAP PO SCH (09:38)
[2021-02-09] MEDS: Allopurinol 100 MG TAB PO SCH (09:39)
[2021-02-09] MEDS: Stress 600 With Zinc 1 TAB PO SCH (09:39)
[2021-02-09] MEDS: Calcitriol 0.25 MCG CAP PO SCH (09:40)
[2021-02-09] MEDS: Amlodipine 5 MG TAB PO SCH (09:40)
[2021-02-09] MEDS: HumaLOG 300 UNITS/3 ML VIAL SC PRN (12:09)
[2021-02-09] MEDS: Rosuvastatin 10 MG TAB PO SCH (21:10)
[2021-02-09] MEDS: Famotidine 20 MG TAB PO SCH (21:10)
[2021-02-09] MEDS: Lantus 1000 UNITS/10 ML VIAL SC SCH (21:13)
[2021-02-10] MEDS: Lactinex Tablet PO SCH (09:08)
[2021-02-10] MEDS: Glimepiride 2 MG TAB PO SCH (09:08)
[2021-02-10] MEDS: Stress 600 With Zinc 1 TAB PO SCH (09:09)
[2021-02-10] MEDS: Gabapentin 300 MG CAP PO SCH ×3 (09:09→21:01)
[2021-02-10] MEDS: Allopurinol 100 MG TAB PO SCH (09:09)
[2021-02-10] MEDS: Tamsulosin HCl 0.4 MG CAP PO SCH (09:09)
[2021-02-10] MEDS: Magnesium Oxide 400 MG TAB PO SCH (09:09)
[2021-02-10] MEDS: levETIRAcetam 500 MG TAB PO SCH ×2 (09:09→21:02)
[2021-02-10] MEDS: Amlodipine 5 MG TAB PO SCH (09:10)
[2021-02-10] MEDS: Ubidecarenone 50 MG CAP PO SCH (09:10)
[2021-02-10] MEDS: hydrALAZINE 25 MG TAB PO SCH ×2 (09:11→21:03)
[2021-02-10] MEDS: Citalopram 20 MG TAB PO SCH (09:11)
[2021-02-10] MEDS: Fluticasone Propionate Nasal Spray 16 gm Bottle NASAL SCH (10:18)
[2021-02-10] MEDS: HumaLOG 300 UNITS/3 ML VIAL SC PRN (17:06)
[2021-02-10] MEDS: Rosuvastatin 10 MG TAB PO SCH (21:01)
[2021-02-10] MEDS: Lantus 1000 UNITS/10 ML VIAL SC SCH (21:03)
[2021-02-10] MEDS: Famotidine 20 MG TAB PO SCH (21:03)
[2021-02-11] MEDS: Glimepiride 2 MG TAB PO SCH (09:10)
[2021-02-11] MEDS: Amlodipine 5 MG TAB PO SCH (09:10)
[2021-02-11] MEDS: Allopurinol 100 MG TAB PO SCH (09:10)
[2021-02-11] MEDS: Citalopram 20 MG TAB PO SCH (09:11)
[2021-02-11] MEDS: hydrALAZINE 25 MG TAB PO SCH ×2 (09:11→20:16)
[2021-02-11] MEDS: Gabapentin 300 MG CAP PO SCH ×3 (09:11→20:14)
[2021-02-11] MEDS: Lactinex Tablet PO SCH (09:13)
[2021-02-11] MEDS: Fluticasone Propionate Nasal Spray 16 gm Bottle NASAL SCH (09:13)
[2021-02-11] MEDS: levETIRAcetam 500 MG TAB PO SCH ×2 (09:13→20:15)
[2021-02-11] MEDS: Magnesium Oxide 400 MG TAB PO SCH (09:14)
[2021-02-11] MEDS: Tamsulosin HCl 0.4 MG CAP PO SCH (09:14)
[2021-02-11] MEDS: Stress 600 With Zinc 1 TAB PO SCH (09:14)
[2021-02-11] MEDS: Ubidecarenone 50 MG CAP PO SCH (09:14)
[2021-02-11] MEDS: HumaLOG 300 UNITS/3 ML VIAL SC PRN ×2 (12:17→20:18)
[2021-02-11] MEDS: Acetaminophen/Codeine 30-300mg Tablet PO PRN ×2 (14:35→20:16)
[2021-02-11] MEDS: Rosuvastatin 10 MG TAB PO SCH (20:14)
[2021-02-11] MEDS: Famotidine 20 MG TAB PO SCH (20:15)
[2021-02-11] MEDS: Lantus 1000 UNITS/10 ML VIAL SC SCH (20:18)
[2021-02-12] MEDS: Glimepiride 2 MG TAB PO SCH (07:44)
[2021-02-12] MEDS: Magnesium Oxide 400 MG TAB PO SCH (08:24)
[2021-02-12] MEDS: Tamsulosin HCl 0.4 MG CAP PO SCH (08:24)
[2021-02-12] MEDS: levETIRAcetam 500 MG TAB PO SCH ×2 (08:24→21:31)
[2021-02-12] MEDS: Ubidecarenone 50 MG CAP PO SCH (08:24)
[2021-02-12] MEDS: Stress 600 With Zinc 1 TAB PO SCH (08:25)
[2021-02-12] MEDS: Gabapentin 300 MG CAP PO SCH ×3 (08:25→21:33)
[2021-02-12] MEDS: hydrALAZINE 25 MG TAB PO SCH ×2 (08:26→21:33)
[2021-02-12] MEDS: Amlodipine 5 MG TAB PO SCH (08:26)
[2021-02-12] MEDS: Citalopram 20 MG TAB PO SCH (08:26)
[2021-02-12] MEDS: Fluticasone Propionate Nasal Spray 16 gm Bottle NASAL SCH (08:26)
[2021-02-12] MEDS: Allopurinol 100 MG TAB PO SCH (08:26)
[2021-02-12] MEDS: Calcitriol 0.25 MCG CAP PO SCH (08:26)
[2021-02-12] MEDS: Lactinex Tablet PO SCH (08:27)
[2021-02-12] MEDS: Acetaminophen/Codeine 30-300mg Tablet PO PRN (08:43)
[2021-02-12 12:44] LABS: Anion Gap 17 mmol/L (10-20); BUN (Urea Nitrogen) 52 mg/dL (8.4-25.7); Calc. Creatinine Clearance 23 mL/min (70-130); Calcium 8.7 mg/dL (7.8-10.44); Carbon Dioxide 21 mmol/L (23-31); Chloride 96 mmol/L (98-107); Glucose 163 mg/dL (80-115); Potassium 4.9 mmol/L (3.5-5.1); Sodium 129 mmol/L (136-145)
[2021-02-12] MEDS: HumaLOG 300 UNITS/3 ML VIAL SC PRN ×2 (13:14→21:44)
[2021-02-12] MEDS: Sodium Chloride 0.9% 1,000 ML IV SCH (14:25)
[2021-02-12] MEDS: Famotidine 20 MG TAB PO SCH (21:33)
[2021-02-12] MEDS: Rosuvastatin 10 MG TAB PO SCH (21:33)
[2021-02-12] MEDS: Lantus 1000 UNITS/10 ML VIAL SC SCH (21:42)
[2021-02-13] MEDS: Sodium Chloride 0.9% 1,000 ML IV SCH ×2 (00:13→08:54)
[2021-02-13 05:52] LABS: Anion Gap 16 mmol/L (10-20); BUN (Urea Nitrogen) 56 mg/dL (8.4-25.7); Calc. Creatinine Clearance 22 mL/min (70-130); Calcium 8.7 mg/dL (7.8-10.44); Carbon Dioxide 20 mmol/L (23-31); Chloride 96 mmol/L (98-107); Glucose 136 mg/dL (80-115); Potassium 5.1 mmol/L (3.5-5.1); Sodium 127 mmol/L (136-145)
[2021-02-13 06:07] LABS: #Basophils 0.1 thou/uL (0.0-0.2); #Eosinphils 0.2 thou/uL (0.0-0.7); #Lymphocytes 0.7 thou/uL (1.20-3.40); #Monocytes 0.7 thou/uL (0.11-0.59); #Neutrophils 6.6 thou/uL (1.40-6.50); %Basophils 1.1 % (0.0-1.0); %Eosinophils 2.8 % (0.0-10.0); %Lymphocytes 8.7 % (21.0-51.0); %Monocytes 8.5 % (0.0-10.0); %Neutrophils 78.9 % (42.0-75.0); Anisocytosis MODERATE=16-30 cells (100X) (0-5/hpf); Hemoglobin 7.4 g/dL (14.0-18.0); Hypochromia SLIGHT = 6-15 cells (100X) (0-5/hpf); Macrocytosis SLIGHT = 6-15 cells (100X) (0-5/hpf); Mean Corpuscular HGB CONC 28.8 g/dL (32.0-36.0); Mean Corpuscular Hemoglobin 28.7 pg (27.0-31.0); Mean Corpuscular Volume 99.7 fL (78.0-98.0); Mean Platelet Volume 5.5 fL (7.4-10.4); Platelet Count 214 thou/uL (130-400); Platelet Morphology Comment Appears Adequate; RBC Distribution Width 17.1 % (11.5-14.5); Red Blood Cell (RBC) Count 2.58 mill/uL (4.70-6.10); White Blood Cell (WBC) Count 8.3 thou/uL (4.8-10.8)
[2021-02-13] MEDS: Lactinex Tablet PO SCH (08:15)
[2021-02-13] MEDS: Amlodipine 5 MG TAB PO SCH (08:15)
[2021-02-13] MEDS: levETIRAcetam 500 MG TAB PO SCH (08:15)
[2021-02-13] MEDS: hydrALAZINE 25 MG TAB PO SCH (08:15)
[2021-02-13] MEDS: Allopurinol 100 MG TAB PO SCH (08:15)
[2021-02-13] MEDS: Magnesium Oxide 400 MG TAB PO SCH (08:16)
[2021-02-13] MEDS: Fluticasone Propionate Nasal Spray 16 gm Bottle NASAL SCH (08:17)
[2021-02-13] MEDS: Glimepiride 2 MG TAB PO SCH (08:17)
[2021-02-13] MEDS: Citalopram 20 MG TAB PO SCH (08:17)
[2021-02-13] MEDS: Gabapentin 300 MG CAP PO SCH ×2 (08:17→15:16)
[2021-02-13] MEDS: Ubidecarenone 50 MG CAP PO SCH (08:18)
[2021-02-13] MEDS: Stress 600 With Zinc 1 TAB PO SCH (08:18)
[2021-02-13] MEDS: Tamsulosin HCl 0.4 MG CAP PO SCH (08:19)
[2021-02-13 09:01] VITALS: TEMP 96.8
[2021-02-13] MEDS: Acetaminophen/Codeine 30-300mg Tablet PO PRN (09:57)
[2021-02-13 15:26] VITALS: BP 129/85
== END 2021-02-13 14:00 | disposition short-term general hospital (02) | DRG 948 ==
LOC: NAV ACUTE 17:00
PROVIDERS: ADMIT Internal Medicine; ATTEND Internal Medicine
DX: R53.81 Other malaise (principal); N18.4 Chronic kidney disease, stage 4 (severe); I48.20 Chronic atrial fibrillation, unspecified; M84.48XA Pathological fracture, other site, initial encounter for fracture; E87.1 Hypo-osmolality and hyponatremia; R53.1 Weakness; R27.0 Ataxia, unspecified; E11.22 Type 2 diabetes mellitus with diabetic chronic kidney disease; M85.88 Other specified disorders of bone density and structure, other site; I25.10 Atherosclerotic heart disease of native coronary artery without angina pectoris; F41.9 Anxiety disorder, unspecified; F32.9 Major depressive disorder, single episode, unspecified; E86.0 Dehydration; E78.5 Hyperlipidemia, unspecified; K21.9 Gastro-esophageal reflux disease without esophagitis; Z95.1 Presence of aortocoronary bypass graft; Z87.891 Personal history of nicotine dependence
CPT/HCPCS: 36416; 70450; 80048; 80053; 81001; 85025; J1815; J7050; Q0162

== ENCOUNTER 2021-02-22 19:38 | Inpatient (IN) | payer MEDICARE, MEDICAID ==
[2021-02-22] MEDS ORDERED: Ventolin HFA Inhaler 60 PUFF INHALER INH PRN (21:32)
[2021-02-22] MEDS ORDERED: Benzonatate 100 MG CAP PO PRN (21:33)
[2021-02-22] MEDS ORDERED: Lantus 1000 UNITS/10 ML VIAL SC SCH (22:00)
[2021-02-22] MEDS ORDERED: Meclizine HCl 25 MG TAB PO PRN (22:00)
[2021-02-22] MEDS ORDERED: Gabapentin 300 MG CAP PO SCH (22:00)
[2021-02-22] MEDS ORDERED: Pantoprazole 40 MG GRANULES PACKET PO PRN (22:01)
[2021-02-22] MEDS ORDERED: Dextrose 50% Abboject 50 ML SYRINGE SLOW IVP PRN (22:06)
[2021-02-22] MEDS ORDERED: hydrALAZINE 25 MG TAB PO SCH (22:15)
[2021-02-22] MEDS ORDERED: levETIRAcetam 500 mg/5 ml Oral Solution PO SCH (22:15)
[2021-02-22] MEDS ORDERED: Dextrose 5% in Water 1,000 ML IV PRN (22:15)
[2021-02-22] MEDS ORDERED: Rosuvastatin 10 MG TAB PO SCH (22:15)
[2021-02-23 06:28] LABS: Anion Gap 15 mmol/L (10-20); BUN (Urea Nitrogen) 30 mg/dL (8.4-25.7); Calc. Creatinine Clearance 28 mL/min (70-130); Carbon Dioxide 25 mmol/L (23-31); Chloride 97 mmol/L (98-107); Glucose 117 mg/dL (80-115); Potassium 3.6 mmol/L (3.5-5.1); Sodium 133 mmol/L (136-145)
[2021-02-23 07:11] LABS: #Basophils 0.1 thou/uL (0.0-0.2); #Eosinphils 0.2 thou/uL (0.0-0.7); #Monocytes 0.9 thou/uL (0.11-0.59); #Neutrophils 4.3 thou/uL (1.40-6.50); %Basophils 1.1 % (0.0-1.0); %Eosinophils 2.3 % (0.0-10.0); %Lymphocytes 15.7 % (21.0-51.0); %Monocytes 14.4 % (0.0-10.0); %Neutrophils 66.5 % (42.0-75.0); Hemoglobin 7.6 g/dL (14.0-18.0); Mean Corpuscular HGB CONC 28.1 g/dL (32.0-36.0); Mean Corpuscular Hemoglobin 27.3 pg (27.0-31.0); Mean Corpuscular Volume 97.2 fL (78.0-98.0); Mean Platelet Volume 5.9 fL (7.4-10.4); Platelet Count 155 thou/uL (130-400); RBC Distribution Width 17.1 % (11.5-14.5); Red Blood Cell (RBC) Count 2.79 mill/uL (4.70-6.10); White Blood Cell (WBC) Count 6.5 thou/uL (4.8-10.8)
[2021-02-23 07:15] LABS: Anisocytosis MODERATE=16-30 cells (100X) (0-5/hpf); Macrocytosis SLIGHT = 6-15 cells (100X) (0-5/hpf); Platelet Morphology Comment Appears Adequate; Poikilocytosis SLIGHT = 6-15 cells (100X) (0-5/hpf)
[2021-02-23] MEDS: Ubidecarenone 50 MG CAP PO SCH (08:44)
[2021-02-23] MEDS: levETIRAcetam 500 mg/5 ml Oral Solution PO SCH ×2 (08:44→21:32)
[2021-02-23] MEDS: Fluticasone Propionate Nasal Spray 16 gm Bottle NASAL SCH (08:44)
[2021-02-23] MEDS: Magnesium Oxide 400 MG TAB PO SCH (08:45)
[2021-02-23] MEDS: Tamsulosin HCl 0.4 MG CAP PO SCH (08:45)
[2021-02-23] MEDS: Gabapentin 100 MG CAP PO SCH ×3 (08:45→21:31)
[2021-02-23] MEDS: Citalopram 20 MG TAB PO SCH (08:45)
[2021-02-23] MEDS: Stress 600 With Zinc 1 TAB PO SCH (08:45)
[2021-02-23] MEDS: hydrALAZINE 25 MG TAB PO SCH ×2 (08:45→21:31)
[2021-02-23] MEDS: Amlodipine 5 MG TAB PO SCH (08:46)
[2021-02-23] MEDS: Glimepiride 2 MG TAB PO SCH (08:46)
[2021-02-23] MEDS: Allopurinol 100 MG TAB PO SCH (08:46)
[2021-02-23] MEDS: Lactinex Tablet PO SCH (08:47)
[2021-02-23] MEDS: Calcitriol 0.25 MCG CAP PO SCH (08:49)
[2021-02-23] MEDS ORDERED: Allopurinol 100 MG TAB PO SCH (09:00)
[2021-02-23] MEDS ORDERED: Lantus 1000 UNITS/10 ML VIAL SC SCH (21:00)
[2021-02-23] MEDS: Rosuvastatin 10 MG TAB PO SCH (21:30)
[2021-02-23] MEDS: Lantus 1000 UNITS/10 ML VIAL SC SCH (21:32)
[2021-02-24] MEDS: Allopurinol 100 MG TAB PO SCH (08:44)
[2021-02-24] MEDS: Glimepiride 2 MG TAB PO SCH (08:44)
[2021-02-24] MEDS: Amlodipine 5 MG TAB PO SCH (08:44)
[2021-02-24] MEDS: Citalopram 20 MG TAB PO SCH (08:45)
[2021-02-24] MEDS: Gabapentin 100 MG CAP PO SCH ×3 (08:45→20:56)
[2021-02-24] MEDS: Fluticasone Propionate Nasal Spray 16 gm Bottle NASAL SCH (08:45)
[2021-02-24] MEDS: hydrALAZINE 25 MG TAB PO SCH ×2 (08:46→20:57)
[2021-02-24] MEDS: Magnesium Oxide 400 MG TAB PO SCH (08:47)
[2021-02-24] MEDS: Lactinex Tablet PO SCH (08:47)
[2021-02-24] MEDS: levETIRAcetam 500 mg/5 ml Oral Solution PO SCH ×2 (08:47→20:55)
[2021-02-24] MEDS: Stress 600 With Zinc 1 TAB PO SCH (08:47)
[2021-02-24] MEDS: Ubidecarenone 50 MG CAP PO SCH (08:48)
[2021-02-24] MEDS: Tamsulosin HCl 0.4 MG CAP PO SCH (08:50)
[2021-02-24] MEDS ORDERED: Bisacodyl 10 MG SUPP PR PRN (09:24)
[2021-02-24] MEDS ORDERED: Cepastat Lozenges 1 LOZ PO PRN (09:24)
[2021-02-24] MEDS ORDERED: Senokot S 8.6-50 MG TAB PO PRN (09:24)
[2021-02-24] MEDS ORDERED: Bisacodyl 5 MG TAB PO PRN (09:24)
[2021-02-24] MEDS: Rosuvastatin 10 MG TAB PO SCH (20:56)
[2021-02-24] MEDS: Lantus 1000 UNITS/10 ML VIAL SC SCH (20:57)
[2021-02-25 06:08] LABS: #Basophils 0.1 thou/uL (0.0-0.2); #Eosinphils 0.1 thou/uL (0.0-0.7); #Lymphocytes 1.1 thou/uL (1.20-3.40); #Monocytes 1.1 thou/uL (0.11-0.59); #Neutrophils 5.7 thou/uL (1.40-6.50); %Basophils 0.9 % (0.0-1.0); %Eosinophils 1.5 % (0.0-10.0); %Lymphocytes 13.7 % (21.0-51.0); %Monocytes 13.4 % (0.0-10.0); %Neutrophils 70.5 % (42.0-75.0); Hemoglobin 8.1 g/dL (14.0-18.0); Mean Corpuscular HGB CONC 28.9 g/dL (32.0-36.0); Mean Corpuscular Hemoglobin 27.6 pg (27.0-31.0); Mean Corpuscular Volume 95.5 fL (78.0-98.0); Mean Platelet Volume 6.2 fL (7.4-10.4); Platelet Count 162 thou/uL (130-400); RBC Distribution Width 16.5 % (11.5-14.5); Red Blood Cell (RBC) Count 2.92 mill/uL (4.70-6.10)
[2021-02-25] MEDS: Glimepiride 2 MG TAB PO SCH (08:25)
[2021-02-25] MEDS: Citalopram 20 MG TAB PO SCH (08:26)
[2021-02-25] MEDS: Allopurinol 100 MG TAB PO SCH (08:26)
[2021-02-25] MEDS: Amlodipine 5 MG TAB PO SCH (08:26)
[2021-02-25] MEDS: Gabapentin 100 MG CAP PO SCH ×3 (08:27→21:20)
[2021-02-25] MEDS: hydrALAZINE 25 MG TAB PO SCH ×2 (08:27→21:22)
[2021-02-25] MEDS: Fluticasone Propionate Nasal Spray 16 gm Bottle NASAL SCH (08:27)
[2021-02-25] MEDS: Lactinex Tablet PO SCH (08:28)
[2021-02-25] MEDS: levETIRAcetam 500 mg/5 ml Oral Solution PO SCH ×2 (08:28→21:19)
[2021-02-25] MEDS: Magnesium Oxide 400 MG TAB PO SCH (08:28)
[2021-02-25] MEDS: Tamsulosin HCl 0.4 MG CAP PO SCH (08:29)
[2021-02-25] MEDS: Ubidecarenone 50 MG CAP PO SCH (08:29)
[2021-02-25] MEDS: Stress 600 With Zinc 1 TAB PO SCH (08:29)
[2021-02-25] MEDS: Acetaminophen 325 MG TAB PO PRN (12:44)
[2021-02-25] MEDS: Ondansetron ODT 4 MG TAB PO PRN (17:41)
[2021-02-25] MEDS: Rosuvastatin 10 MG TAB PO SCH (21:20)
[2021-02-25] MEDS: Lantus 1000 UNITS/10 ML VIAL SC SCH (21:22)
[2021-02-26] MEDS: Citalopram 20 MG TAB PO SCH (08:32)
[2021-02-26] MEDS: Tamsulosin HCl 0.4 MG CAP PO SCH (08:32)
[2021-02-26] MEDS: Stress 600 With Zinc 1 TAB PO SCH (08:32)
[2021-02-26] MEDS: levETIRAcetam 500 mg/5 ml Oral Solution PO SCH ×2 (08:32→21:27)
[2021-02-26] MEDS: Ubidecarenone 50 MG CAP PO SCH (08:32)
[2021-02-26] MEDS: Allopurinol 100 MG TAB PO SCH (08:33)
[2021-02-26] MEDS: Amlodipine 5 MG TAB PO SCH (08:33)
[2021-02-26] MEDS: Magnesium Oxide 400 MG TAB PO SCH (08:33)
[2021-02-26] MEDS: Glimepiride 2 MG TAB PO SCH (08:33)
[2021-02-26] MEDS: Gabapentin 100 MG CAP PO SCH ×3 (08:33→21:25)
[2021-02-26] MEDS: hydrALAZINE 25 MG TAB PO SCH ×2 (08:33→21:27)
[2021-02-26] MEDS: Lactinex Tablet PO SCH (08:34)
[2021-02-26] MEDS: Fluticasone Propionate Nasal Spray 16 gm Bottle NASAL SCH (08:34)
[2021-02-26] MEDS: Acetaminophen 325 MG TAB PO PRN ×2 (08:36→21:26)
[2021-02-26] MEDS: Calcitriol 0.25 MCG CAP PO SCH (08:36)
[2021-02-26] MEDS ORDERED: Lidocaine 5% Patch TD SCH (12:45)
[2021-02-26] MEDS: Rosuvastatin 10 MG TAB PO SCH (21:26)
[2021-02-26] MEDS: Lantus 1000 UNITS/10 ML VIAL SC SCH (21:27)
[2021-02-26] MEDS: Transdermal Patch Removal TOP SCH (21:28)
[2021-02-27] MEDS: Amlodipine 5 MG TAB PO SCH (08:40)
[2021-02-27] MEDS: Lidocaine 5% Patch TD SCH (08:40)
[2021-02-27] MEDS: Stress 600 With Zinc 1 TAB PO SCH (08:40)
[2021-02-27] MEDS: Allopurinol 100 MG TAB PO SCH (08:41)
[2021-02-27] MEDS: Gabapentin 100 MG CAP PO SCH ×2 (08:41→20:57)
[2021-02-27] MEDS: hydrALAZINE 25 MG TAB PO SCH ×2 (08:41→20:57)
[2021-02-27] MEDS: levETIRAcetam 500 mg/5 ml Oral Solution PO SCH ×2 (08:41→20:54)
[2021-02-27] MEDS: Magnesium Oxide 400 MG TAB PO SCH (08:41)
[2021-02-27] MEDS: Ubidecarenone 50 MG CAP PO SCH (08:41)
[2021-02-27] MEDS: Glimepiride 2 MG TAB PO SCH (08:41)
[2021-02-27] MEDS: Citalopram 20 MG TAB PO SCH (08:41)
[2021-02-27] MEDS: Tamsulosin HCl 0.4 MG CAP PO SCH (08:41)
[2021-02-27] MEDS: Fluticasone Propionate Nasal Spray 16 gm Bottle NASAL SCH (08:42)
[2021-02-27] MEDS: Lactinex Tablet PO SCH (08:42)
[2021-02-27] MEDS: Rosuvastatin 10 MG TAB PO SCH (20:54)
[2021-02-27] MEDS: Acetaminophen 325 MG TAB PO PRN (20:58)
[2021-02-27] MEDS: Transdermal Patch Removal TOP SCH (20:58)
[2021-02-27] MEDS: Lantus 1000 UNITS/10 ML VIAL SC SCH (20:59)
[2021-02-28] MEDS: Gabapentin 100 MG CAP PO SCH ×4 (07:19→21:21)
[2021-02-28] MEDS: Allopurinol 100 MG TAB PO SCH (08:37)
[2021-02-28] MEDS: Glimepiride 2 MG TAB PO SCH (08:37)
[2021-02-28] MEDS: Fluticasone Propionate Nasal Spray 16 gm Bottle NASAL SCH (08:38)
[2021-02-28] MEDS: Amlodipine 5 MG TAB PO SCH (08:38)
[2021-02-28] MEDS: Citalopram 20 MG TAB PO SCH (08:38)
[2021-02-28] MEDS: Lactinex Tablet PO SCH (08:39)
[2021-02-28] MEDS: levETIRAcetam 500 mg/5 ml Oral Solution PO SCH ×2 (08:39→21:21)
[2021-02-28] MEDS: hydrALAZINE 25 MG TAB PO SCH ×2 (08:39→21:21)
[2021-02-28] MEDS: Tamsulosin HCl 0.4 MG CAP PO SCH (08:40)
[2021-02-28] MEDS: Ubidecarenone 50 MG CAP PO SCH (08:40)
[2021-02-28] MEDS: Magnesium Oxide 400 MG TAB PO SCH (08:40)
[2021-02-28] MEDS: Lidocaine 5% Patch TD SCH (08:40)
[2021-02-28] MEDS: Stress 600 With Zinc 1 TAB PO SCH (08:40)
[2021-02-28] MEDS: Acetaminophen 325 MG TAB PO PRN ×2 (08:42→21:19)
[2021-02-28] MEDS: Calcitriol 0.25 MCG CAP PO SCH (10:14)
[2021-02-28] MEDS ORDERED: Mag-Al Plus 1200 MG/1200 MG/120 MG/30 ML UDCUP PO PRN (21:04)
[2021-02-28] MEDS: Rosuvastatin 10 MG TAB PO SCH (21:21)
[2021-02-28] MEDS: Transdermal Patch Removal TOP SCH (21:22)
[2021-02-28] MEDS: Lantus 1000 UNITS/10 ML VIAL SC SCH (21:22)
[2021-03-01] MEDS: Lidocaine 5% Patch TD SCH (08:32)
[2021-03-01] MEDS: Ondansetron ODT 4 MG TAB PO PRN (08:32)
[2021-03-01] MEDS: Lactinex Tablet PO SCH (08:32)
[2021-03-01] MEDS: levETIRAcetam 500 mg/5 ml Oral Solution PO SCH ×2 (08:33→20:36)
[2021-03-01] MEDS: Gabapentin 100 MG CAP PO SCH ×3 (08:34→20:35)
[2021-03-01] MEDS: hydrALAZINE 25 MG TAB PO SCH ×2 (08:34→20:34)
[2021-03-01] MEDS: Fluticasone Propionate Nasal Spray 16 gm Bottle NASAL SCH (08:35)
[2021-03-01] MEDS: Amlodipine 5 MG TAB PO SCH (08:35)
[2021-03-01] MEDS: Citalopram 20 MG TAB PO SCH (08:36)
[2021-03-01] MEDS: Glimepiride 2 MG TAB PO SCH (08:36)
[2021-03-01] MEDS: Magnesium Oxide 400 MG TAB PO SCH (08:36)
[2021-03-01] MEDS: Allopurinol 100 MG TAB PO SCH (08:36)
[2021-03-01] MEDS: Tamsulosin HCl 0.4 MG CAP PO SCH (08:37)
[2021-03-01] MEDS: Stress 600 With Zinc 1 TAB PO SCH (08:37)
[2021-03-01] MEDS: Ubidecarenone 50 MG CAP PO SCH (08:37)
[2021-03-01] MEDS: Acetaminophen 325 MG TAB PO PRN ×2 (08:43→20:38)
[2021-03-01] MEDS: Rosuvastatin 10 MG TAB PO SCH (20:35)
[2021-03-01] MEDS: Lantus 1000 UNITS/10 ML VIAL SC SCH (20:37)
[2021-03-01] MEDS: Transdermal Patch Removal TOP SCH (20:49)
[2021-03-02] MEDS: Lidocaine 5% Patch TD SCH (09:13)
[2021-03-02] MEDS: levETIRAcetam 500 mg/5 ml Oral Solution PO SCH ×2 (09:13→20:59)
[2021-03-02] MEDS: Ubidecarenone 50 MG CAP PO SCH (09:16)
[2021-03-02] MEDS: Pantoprazole 40 MG GRANULES PACKET PO SCH (09:17)
[2021-03-02] MEDS: Allopurinol 100 MG TAB PO SCH (09:17)
[2021-03-02] MEDS: Lactinex Tablet PO SCH (09:17)
[2021-03-02] MEDS: Stress 600 With Zinc 1 TAB PO SCH (09:18)
[2021-03-02] MEDS: Gabapentin 100 MG CAP PO SCH ×3 (09:18→20:59)
[2021-03-02] MEDS: Magnesium Oxide 400 MG TAB PO SCH (09:19)
[2021-03-02] MEDS: Tamsulosin HCl 0.4 MG CAP PO SCH (09:20)
[2021-03-02] MEDS: Citalopram 20 MG TAB PO SCH (09:20)
[2021-03-02] MEDS: Glimepiride 2 MG TAB PO SCH (09:20)
[2021-03-02] MEDS: Amlodipine 5 MG TAB PO SCH (09:21)
[2021-03-02] MEDS: Fluticasone Propionate Nasal Spray 16 gm Bottle NASAL SCH (09:23)
[2021-03-02] MEDS: hydrALAZINE 25 MG TAB PO SCH ×2 (09:23→20:59)
[2021-03-02] MEDS: Acetaminophen 325 MG TAB PO PRN ×2 (09:31→20:58)
[2021-03-02] MEDS: Calcitriol 0.25 MCG CAP PO SCH (09:31)
[2021-03-02] MEDS: Rosuvastatin 10 MG TAB PO SCH (20:58)
[2021-03-02] MEDS: Lantus 1000 UNITS/10 ML VIAL SC SCH (20:59)
[2021-03-02] MEDS: Transdermal Patch Removal TOP SCH (21:00)
[2021-03-03] MEDS: Acetaminophen 325 MG TAB PO PRN ×3 (08:49→21:24)
[2021-03-03] MEDS: levETIRAcetam 500 mg/5 ml Oral Solution PO SCH ×2 (08:49→21:22)
[2021-03-03] MEDS: Ubidecarenone 50 MG CAP PO SCH (08:50)
[2021-03-03] MEDS: Amlodipine 5 MG TAB PO SCH (08:50)
[2021-03-03] MEDS: Glimepiride 2 MG TAB PO SCH (08:51)
[2021-03-03] MEDS: Gabapentin 100 MG CAP PO SCH ×3 (08:51→21:23)
[2021-03-03] MEDS: Magnesium Oxide 400 MG TAB PO SCH (08:51)
[2021-03-03] MEDS: hydrALAZINE 25 MG TAB PO SCH ×2 (08:52→21:24)
[2021-03-03] MEDS: Stress 600 With Zinc 1 TAB PO SCH (08:52)
[2021-03-03] MEDS: Pantoprazole 40 MG GRANULES PACKET PO SCH (08:52)
[2021-03-03] MEDS: Allopurinol 100 MG TAB PO SCH (08:52)
[2021-03-03] MEDS: Tamsulosin HCl 0.4 MG CAP PO SCH (08:53)
[2021-03-03] MEDS: Lactinex Tablet PO SCH (08:53)
[2021-03-03] MEDS: Citalopram 20 MG TAB PO SCH (08:53)
[2021-03-03] MEDS: Fluticasone Propionate Nasal Spray 16 gm Bottle NASAL SCH (08:54)
[2021-03-03] MEDS: Lidocaine 5% Patch TD SCH (08:54)
[2021-03-03] MEDS: Lantus 1000 UNITS/10 ML VIAL SC SCH (21:22)
[2021-03-03] MEDS: Rosuvastatin 10 MG TAB PO SCH (21:23)
[2021-03-03] MEDS: Transdermal Patch Removal TOP SCH (21:25)
[2021-03-04] MEDS: Lidocaine 5% Patch TD SCH (08:17)
[2021-03-04] MEDS: Citalopram 20 MG TAB PO SCH (08:17)
[2021-03-04] MEDS: Ubidecarenone 50 MG CAP PO SCH (08:17)
[2021-03-04] MEDS: Gabapentin 100 MG CAP PO SCH ×3 (08:18→20:47)
[2021-03-04] MEDS: Amlodipine 5 MG TAB PO SCH (08:18)
[2021-03-04] MEDS: Stress 600 With Zinc 1 TAB PO SCH (08:19)
[2021-03-04] MEDS: Magnesium Oxide 400 MG TAB PO SCH (08:19)
[2021-03-04] MEDS: Tamsulosin HCl 0.4 MG CAP PO SCH (08:19)
[2021-03-04] MEDS: levETIRAcetam 500 mg/5 ml Oral Solution PO SCH ×2 (08:19→20:46)
[2021-03-04] MEDS: hydrALAZINE 25 MG TAB PO SCH ×2 (08:19→20:48)
[2021-03-04] MEDS: Glimepiride 2 MG TAB PO SCH (08:19)
[2021-03-04] MEDS: Pantoprazole 40 MG GRANULES PACKET PO SCH (08:19)
[2021-03-04] MEDS: Allopurinol 100 MG TAB PO SCH (08:19)
[2021-03-04] MEDS: Fluticasone Propionate Nasal Spray 16 gm Bottle NASAL SCH (08:20)
[2021-03-04] MEDS: Lactinex Tablet PO SCH (08:20)
[2021-03-04] MEDS: HumaLOG 300 UNITS/3 ML VIAL SC PRN (11:56)
[2021-03-04] MEDS: Rosuvastatin 10 MG TAB PO SCH (20:46)
[2021-03-04] MEDS: Acetaminophen 325 MG TAB PO PRN (20:47)
[2021-03-04] MEDS: Transdermal Patch Removal TOP SCH (20:49)
[2021-03-04] MEDS: Lantus 1000 UNITS/10 ML VIAL SC SCH (20:49)
[2021-03-05] MEDS: Glimepiride 2 MG TAB PO SCH (08:16)
[2021-03-05] MEDS: Amlodipine 5 MG TAB PO SCH (08:16)
[2021-03-05] MEDS: Allopurinol 100 MG TAB PO SCH (08:16)
[2021-03-05] MEDS: Citalopram 20 MG TAB PO SCH (08:17)
[2021-03-05] MEDS: Fluticasone Propionate Nasal Spray 16 gm Bottle NASAL SCH (08:17)
[2021-03-05] MEDS: Gabapentin 100 MG CAP PO SCH (08:17)
[2021-03-05] MEDS: levETIRAcetam 500 mg/5 ml Oral Solution PO SCH ×2 (08:18→21:21)
[2021-03-05] MEDS: hydrALAZINE 25 MG TAB PO SCH ×2 (08:18→21:22)
[2021-03-05] MEDS: Lactinex Tablet PO SCH (08:18)
[2021-03-05] MEDS: Tamsulosin HCl 0.4 MG CAP PO SCH (08:19)
[2021-03-05] MEDS: Magnesium Oxide 400 MG TAB PO SCH (08:19)
[2021-03-05] MEDS: Stress 600 With Zinc 1 TAB PO SCH (08:19)
[2021-03-05] MEDS: Lidocaine 5% Patch TD SCH (08:19)
[2021-03-05] MEDS: Ubidecarenone 50 MG CAP PO SCH ×2 (08:21→12:19)
[2021-03-05] MEDS: Calcitriol 0.25 MCG CAP PO SCH (08:21)
[2021-03-05] MEDS: Acetaminophen 325 MG TAB PO PRN ×2 (08:21→21:22)
[2021-03-05] MEDS: Lantus 1000 UNITS/10 ML VIAL SC SCH (21:21)
[2021-03-05] MEDS: Rosuvastatin 10 MG TAB PO SCH (21:22)
[2021-03-05] MEDS: Transdermal Patch Removal TOP SCH (21:23)
[2021-03-06] MEDS: Glimepiride 2 MG TAB PO SCH (08:18)
[2021-03-06] MEDS: Amlodipine 5 MG TAB PO SCH (08:19)
[2021-03-06] MEDS: Citalopram 20 MG TAB PO SCH (08:19)
[2021-03-06] MEDS: Allopurinol 100 MG TAB PO SCH (08:19)
[2021-03-06] MEDS: Fluticasone Propionate Nasal Spray 16 gm Bottle NASAL SCH (08:19)
[2021-03-06] MEDS: Gabapentin 100 MG CAP PO SCH (08:20)
[2021-03-06] MEDS: Lactinex Tablet PO SCH (08:20)
[2021-03-06] MEDS: hydrALAZINE 25 MG TAB PO SCH ×2 (08:20→21:17)
[2021-03-06] MEDS: levETIRAcetam 500 mg/5 ml Oral Solution PO SCH ×2 (08:21→21:15)
[2021-03-06] MEDS: Lidocaine 5% Patch TD SCH (08:21)
[2021-03-06] MEDS: Magnesium Oxide 400 MG TAB PO SCH (08:21)
[2021-03-06] MEDS: Stress 600 With Zinc 1 TAB PO SCH (08:22)
[2021-03-06] MEDS: Ubidecarenone 50 MG CAP PO SCH (08:22)
[2021-03-06] MEDS: Tamsulosin HCl 0.4 MG CAP PO SCH (08:22)
[2021-03-06] MEDS: Acetaminophen 325 MG TAB PO PRN ×2 (08:22→21:18)
[2021-03-06] MEDS: Rosuvastatin 10 MG TAB PO SCH (21:17)
[2021-03-06] MEDS: Transdermal Patch Removal TOP SCH (21:18)
[2021-03-06] MEDS: Lantus 1000 UNITS/10 ML VIAL SC SCH (21:19)
[2021-03-07] MEDS: levETIRAcetam 500 mg/5 ml Oral Solution PO SCH ×2 (08:59→21:24)
[2021-03-07] MEDS: Lactinex Tablet PO SCH (08:59)
[2021-03-07] MEDS: Ubidecarenone 50 MG CAP PO SCH (08:59)
[2021-03-07] MEDS: Allopurinol 100 MG TAB PO SCH (09:00)
[2021-03-07] MEDS: Amlodipine 5 MG TAB PO SCH (09:00)
[2021-03-07] MEDS: Stress 600 With Zinc 1 TAB PO SCH (09:00)
[2021-03-07] MEDS: Calcitriol 0.25 MCG CAP PO SCH (09:00)
[2021-03-07] MEDS: Citalopram 20 MG TAB PO SCH (09:01)
[2021-03-07] MEDS: Gabapentin 100 MG CAP PO SCH (09:01)
[2021-03-07] MEDS: Tamsulosin HCl 0.4 MG CAP PO SCH (09:01)
[2021-03-07] MEDS: Glimepiride 2 MG TAB PO SCH (09:01)
[2021-03-07] MEDS: Magnesium Oxide 400 MG TAB PO SCH (09:01)
[2021-03-07] MEDS: hydrALAZINE 25 MG TAB PO SCH ×2 (09:01→21:23)
[2021-03-07] MEDS: Lidocaine 5% Patch TD SCH (09:01)
[2021-03-07] MEDS: Fluticasone Propionate Nasal Spray 16 gm Bottle NASAL SCH (09:02)
[2021-03-07] MEDS: HumaLOG 300 UNITS/3 ML VIAL SC PRN (12:43)
[2021-03-07] MEDS ORDERED: predniSONE 20 MG TAB PO SCH (13:15)
[2021-03-07] MEDS: Mag-Al Plus 1200 MG/1200 MG/120 MG/30 ML UDCUP PO PRN (13:46)
[2021-03-07] MEDS: Rosuvastatin 10 MG TAB PO SCH (21:23)
[2021-03-07] MEDS: predniSONE 20 MG TAB PO SCH (21:23)
[2021-03-07] MEDS: Transdermal Patch Removal TOP SCH (21:25)
[2021-03-07] MEDS: Acetaminophen 325 MG TAB PO PRN (21:25)
[2021-03-07] MEDS: Lantus 1000 UNITS/10 ML VIAL SC SCH (21:27)
[2021-03-08] MEDS: HumaLOG 300 UNITS/3 ML VIAL SC PRN ×3 (05:43→17:41)
[2021-03-08] MEDS: levETIRAcetam 500 mg/5 ml Oral Solution PO SCH ×2 (08:54→21:16)
[2021-03-08] MEDS: Glimepiride 2 MG TAB PO SCH (08:54)
[2021-03-08] MEDS: Stress 600 With Zinc 1 TAB PO SCH (08:54)
[2021-03-08] MEDS: Amlodipine 5 MG TAB PO SCH (08:54)
[2021-03-08] MEDS: Lactinex Tablet PO SCH (08:54)
[2021-03-08] MEDS: Magnesium Oxide 400 MG TAB PO SCH (08:55)
[2021-03-08] MEDS: Gabapentin 100 MG CAP PO SCH (08:55)
[2021-03-08] MEDS: Ubidecarenone 50 MG CAP PO SCH (08:56)
[2021-03-08] MEDS: Tamsulosin HCl 0.4 MG CAP PO SCH (08:57)
[2021-03-08] MEDS: Citalopram 20 MG TAB PO SCH (08:57)
[2021-03-08] MEDS: Fluticasone Propionate Nasal Spray 16 gm Bottle NASAL SCH (08:58)
[2021-03-08] MEDS: predniSONE 20 MG TAB PO SCH ×2 (08:58→21:16)
[2021-03-08] MEDS: Lidocaine 5% Patch TD SCH (08:58)
[2021-03-08] MEDS: Allopurinol 100 MG TAB PO SCH (08:58)
[2021-03-08] MEDS ORDERED: hydrALAZINE 10 MG TAB PO SCH (10:30)
[2021-03-08] MEDS: hydrALAZINE 25 MG TAB PO SCH ×2 (11:56→21:16)
[2021-03-08] MEDS: Mag-Al Plus 1200 MG/1200 MG/120 MG/30 ML UDCUP PO PRN (17:09)
[2021-03-08] MEDS: Rosuvastatin 10 MG TAB PO SCH (21:16)
[2021-03-08] MEDS: Transdermal Patch Removal TOP SCH (21:17)
[2021-03-08] MEDS: Lantus 1000 UNITS/10 ML VIAL SC SCH (21:17)
[2021-03-09] MEDS: HumaLOG 300 UNITS/3 ML VIAL SC PRN ×2 (06:15→12:12)
[2021-03-09] MEDS: Lidocaine 5% Patch TD SCH (08:57)
[2021-03-09] MEDS: Ubidecarenone 50 MG CAP PO SCH (08:57)
[2021-03-09] MEDS: Tamsulosin HCl 0.4 MG CAP PO SCH (08:58)
[2021-03-09] MEDS: levETIRAcetam 500 mg/5 ml Oral Solution PO SCH ×2 (08:58→21:23)
[2021-03-09] MEDS: Magnesium Oxide 400 MG TAB PO SCH (08:58)
[2021-03-09] MEDS: Lactinex Tablet PO SCH (08:58)
[2021-03-09] MEDS: Glimepiride 2 MG TAB PO SCH (08:59)
[2021-03-09] MEDS: Gabapentin 100 MG CAP PO SCH (08:59)
[2021-03-09] MEDS: predniSONE 20 MG TAB PO SCH ×2 (08:59→21:24)
[2021-03-09] MEDS: Citalopram 20 MG TAB PO SCH (08:59)
[2021-03-09] MEDS: Allopurinol 100 MG TAB PO SCH (08:59)
[2021-03-09] MEDS: Stress 600 With Zinc 1 TAB PO SCH (08:59)
[2021-03-09] MEDS: Fluticasone Propionate Nasal Spray 16 gm Bottle NASAL SCH (09:00)
[2021-03-09] MEDS: Amlodipine 5 MG TAB PO SCH (09:02)
[2021-03-09] MEDS: Calcitriol 0.25 MCG CAP PO SCH (09:02)
[2021-03-09] MEDS: hydrALAZINE 25 MG TAB PO SCH ×2 (09:02→21:24)
[2021-03-09] MEDS: Sulfameth/Trimethoprim DS 800-160mg TAB PO SCH (12:12)
[2021-03-09] MEDS: Rosuvastatin 10 MG TAB PO SCH (21:24)
[2021-03-09] MEDS: Lantus 1000 UNITS/10 ML VIAL SC SCH (21:24)
[2021-03-09] MEDS: Transdermal Patch Removal TOP SCH (21:25)
[2021-03-10] MEDS: HumaLOG 300 UNITS/3 ML VIAL SC PRN ×3 (06:27→21:23)
[2021-03-10] MEDS: Glimepiride 2 MG TAB PO SCH (08:40)
[2021-03-10] MEDS: Allopurinol 100 MG TAB PO SCH (08:40)
[2021-03-10] MEDS: Amlodipine 5 MG TAB PO SCH (08:40)
[2021-03-10] MEDS: Citalopram 20 MG TAB PO SCH (08:41)
[2021-03-10] MEDS: Fluticasone Propionate Nasal Spray 16 gm Bottle NASAL SCH (08:41)
[2021-03-10] MEDS: Gabapentin 100 MG CAP PO SCH (08:41)
[2021-03-10] MEDS: Lactinex Tablet PO SCH (08:42)
[2021-03-10] MEDS: hydrALAZINE 25 MG TAB PO SCH ×2 (08:42→21:22)
[2021-03-10] MEDS: Lidocaine 5% Patch TD SCH (08:43)
[2021-03-10] MEDS: predniSONE 20 MG TAB PO SCH ×2 (08:43→21:22)
[2021-03-10] MEDS: Magnesium Oxide 400 MG TAB PO SCH (08:43)
[2021-03-10] MEDS: Stress 600 With Zinc 1 TAB PO SCH (08:44)
[2021-03-10] MEDS: Ubidecarenone 50 MG CAP PO SCH (08:44)
[2021-03-10] MEDS: Tamsulosin HCl 0.4 MG CAP PO SCH (08:44)
[2021-03-10] MEDS: levETIRAcetam 500 mg/5 ml Oral Solution PO SCH ×2 (08:46→21:21)
[2021-03-10] MEDS: Sulfameth/Trimethoprim DS 800-160mg TAB PO SCH (13:38)
[2021-03-10] MEDS: Transdermal Patch Removal TOP SCH (21:22)
[2021-03-10] MEDS: Rosuvastatin 10 MG TAB PO SCH (21:22)
[2021-03-10] MEDS: Lantus 1000 UNITS/10 ML VIAL SC SCH (21:22)
[2021-03-11] MEDS: HumaLOG 300 UNITS/3 ML VIAL SC PRN ×4 (05:24→20:55)
[2021-03-11 06:07] LABS: #Lymphocytes 0.7 thou/uL (1.20-3.40); #Monocytes 0.5 thou/uL (0.11-0.59); #Neutrophils 6.2 thou/uL (1.40-6.50); %Basophils 0.2 % (0.0-1.0); %Monocytes 6.2 % (0.0-10.0); %Neutrophils 84.7 % (42.0-75.0); Anion Gap 16 mmol/L (10-20); BUN (Urea Nitrogen) 24 mg/dL (8.4-25.7); Calc. Creatinine Clearance 36 mL/min (70-130); Calcium 8.3 mg/dL (7.8-10.44); Chloride 92 mmol/L (98-107); Glucose 223 mg/dL (80-115); Hemoglobin 8.4 g/dL (14.0-18.0); Mean Corpuscular HGB CONC 28.2 g/dL (32.0-36.0); Mean Corpuscular Hemoglobin 27.3 pg (27.0-31.0); Mean Corpuscular Volume 96.6 fL (78.0-98.0); Platelet Count 169 thou/uL (130-400); Potassium 3.1 mmol/L (3.5-5.1); Red Blood Cell (RBC) Count 3.09 mill/uL (4.70-6.10); Sodium 134 mmol/L (136-145); White Blood Cell (WBC) Count 7.3 thou/uL (4.8-10.8)
[2021-03-11 06:53] LABS: Carbon Dioxide 29 mmol/L (23-31)
[2021-03-11] MEDS: levETIRAcetam 500 mg/5 ml Oral Solution PO SCH ×2 (08:28→20:48)
[2021-03-11] MEDS: Allopurinol 100 MG TAB PO SCH (08:30)
[2021-03-11] MEDS: Glimepiride 2 MG TAB PO SCH (08:30)
[2021-03-11] MEDS: Amlodipine 5 MG TAB PO SCH (08:30)
[2021-03-11] MEDS: Citalopram 20 MG TAB PO SCH (08:31)
[2021-03-11] MEDS: Gabapentin 100 MG CAP PO SCH (08:31)
[2021-03-11] MEDS: Fluticasone Propionate Nasal Spray 16 gm Bottle NASAL SCH (08:31)
[2021-03-11] MEDS: Lactinex Tablet PO SCH (08:32)
[2021-03-11] MEDS: hydrALAZINE 25 MG TAB PO SCH ×2 (08:32→20:48)
[2021-03-11] MEDS: Tamsulosin HCl 0.4 MG CAP PO SCH (08:33)
[2021-03-11] MEDS: Stress 600 With Zinc 1 TAB PO SCH (08:33)
[2021-03-11] MEDS: Lidocaine 5% Patch TD SCH (08:33)
[2021-03-11] MEDS: Magnesium Oxide 400 MG TAB PO SCH (08:33)
[2021-03-11] MEDS: predniSONE 20 MG TAB PO SCH ×2 (08:33→20:48)
[2021-03-11] MEDS: Ubidecarenone 50 MG CAP PO SCH (08:33)
[2021-03-11] MEDS: Acetaminophen 325 MG TAB PO PRN (08:35)
[2021-03-11] MEDS: Sulfameth/Trimethoprim DS 800-160mg TAB PO SCH (13:17)
[2021-03-11] MEDS: Rosuvastatin 10 MG TAB PO SCH (20:47)
[2021-03-11] MEDS: Lantus 1000 UNITS/10 ML VIAL SC SCH (20:53)
[2021-03-11] MEDS: Transdermal Patch Removal TOP SCH (21:00)
[2021-03-12] MEDS: HumaLOG 300 UNITS/3 ML VIAL SC PRN ×2 (06:19→13:32)
[2021-03-12] MEDS: levETIRAcetam 500 mg/5 ml Oral Solution PO SCH ×2 (09:14→21:49)
[2021-03-12] MEDS: Lidocaine 5% Patch TD SCH (09:14)
[2021-03-12] MEDS: Lactinex Tablet PO SCH (09:14)
[2021-03-12] MEDS: Gabapentin 100 MG CAP PO SCH (09:15)
[2021-03-12] MEDS: Stress 600 With Zinc 1 TAB PO SCH (09:15)
[2021-03-12] MEDS: Ubidecarenone 50 MG CAP PO SCH (09:15)
[2021-03-12] MEDS: Tamsulosin HCl 0.4 MG CAP PO SCH (09:15)
[2021-03-12] MEDS: Magnesium Oxide 400 MG TAB PO SCH (09:15)
[2021-03-12] MEDS: Citalopram 20 MG TAB PO SCH (09:17)
[2021-03-12] MEDS: Glimepiride 2 MG TAB PO SCH (09:17)
[2021-03-12] MEDS: Allopurinol 100 MG TAB PO SCH (09:17)
[2021-03-12] MEDS: predniSONE 20 MG TAB PO SCH ×2 (09:17→21:48)
[2021-03-12] MEDS: hydrALAZINE 25 MG TAB PO SCH ×2 (09:18→21:49)
[2021-03-12] MEDS: Fluticasone Propionate Nasal Spray 16 gm Bottle NASAL SCH (09:18)
[2021-03-12] MEDS: Amlodipine 5 MG TAB PO SCH (09:18)
[2021-03-12] MEDS: Acetaminophen 325 MG TAB PO PRN (09:19)
[2021-03-12] MEDS: Calcitriol 0.25 MCG CAP PO SCH (09:22)
[2021-03-12] MEDS: Sulfameth/Trimethoprim DS 800-160mg TAB PO SCH (13:33)
[2021-03-12] MEDS: Rosuvastatin 10 MG TAB PO SCH (21:48)
[2021-03-12] MEDS: Lantus 1000 UNITS/10 ML VIAL SC SCH (21:49)
[2021-03-12] MEDS: Transdermal Patch Removal TOP SCH (21:49)
[2021-03-13] MEDS: Glimepiride 2 MG TAB PO SCH (07:23)
[2021-03-13] MEDS: HumaLOG 300 UNITS/3 ML VIAL SC PRN ×4 (07:23→21:36)
[2021-03-13] MEDS: Lidocaine 5% Patch TD SCH (09:52)
[2021-03-13] MEDS: Citalopram 20 MG TAB PO SCH (09:53)
[2021-03-13] MEDS: Amlodipine 5 MG TAB PO SCH (09:53)
[2021-03-13] MEDS: Magnesium Oxide 400 MG TAB PO SCH (09:53)
[2021-03-13] MEDS: predniSONE 20 MG TAB PO SCH ×2 (09:55→21:39)
[2021-03-13] MEDS: Ubidecarenone 50 MG CAP PO SCH (09:55)
[2021-03-13] MEDS: Tamsulosin HCl 0.4 MG CAP PO SCH (09:55)
[2021-03-13] MEDS: Stress 600 With Zinc 1 TAB PO SCH (09:56)
[2021-03-13] MEDS: Gabapentin 100 MG CAP PO SCH (09:56)
[2021-03-13] MEDS: Acetaminophen 325 MG TAB PO PRN (09:58)
[2021-03-13] MEDS: Fluticasone Propionate Nasal Spray 16 gm Bottle NASAL SCH (09:59)
[2021-03-13] MEDS: Allopurinol 100 MG TAB PO SCH (09:59)
[2021-03-13] MEDS: levETIRAcetam 500 mg/5 ml Oral Solution PO SCH ×2 (09:59→21:37)
[2021-03-13] MEDS: hydrALAZINE 25 MG TAB PO SCH ×2 (09:59→21:39)
[2021-03-13] MEDS: Lactinex Tablet PO SCH (10:01)
[2021-03-13] MEDS: Sulfameth/Trimethoprim DS 800-160mg TAB PO SCH (12:25)
[2021-03-13] MEDS: Lantus 1000 UNITS/10 ML VIAL SC SCH (21:36)
[2021-03-13] MEDS: Rosuvastatin 10 MG TAB PO SCH (21:37)
[2021-03-13] MEDS: Transdermal Patch Removal TOP SCH (21:39)
[2021-03-14] MEDS: HumaLOG 300 UNITS/3 ML VIAL SC PRN ×2 (06:24→12:20)
[2021-03-14] MEDS: Allopurinol 100 MG TAB PO SCH (08:43)
[2021-03-14] MEDS: Glimepiride 2 MG TAB PO SCH (08:43)
[2021-03-14] MEDS: Fluticasone Propionate Nasal Spray 16 gm Bottle NASAL SCH (08:44)
[2021-03-14] MEDS: Calcitriol 0.25 MCG CAP PO SCH (08:44)
[2021-03-14] MEDS: Gabapentin 100 MG CAP PO SCH (08:44)
[2021-03-14] MEDS: Amlodipine 5 MG TAB PO SCH (08:44)
[2021-03-14] MEDS: Citalopram 20 MG TAB PO SCH (08:44)
[2021-03-14] MEDS: hydrALAZINE 25 MG TAB PO SCH ×2 (08:45→21:19)
[2021-03-14] MEDS: Lidocaine 5% Patch TD SCH (08:46)
[2021-03-14] MEDS: levETIRAcetam 500 mg/5 ml Oral Solution PO SCH ×2 (08:46→21:19)
[2021-03-14] MEDS: Lactinex Tablet PO SCH (08:46)
[2021-03-14] MEDS: Magnesium Oxide 400 MG TAB PO SCH (08:47)
[2021-03-14] MEDS: Ubidecarenone 50 MG CAP PO SCH (08:48)
[2021-03-14] MEDS: Tamsulosin HCl 0.4 MG CAP PO SCH (08:48)
[2021-03-14] MEDS: Stress 600 With Zinc 1 TAB PO SCH (08:48)
[2021-03-14] MEDS: predniSONE 20 MG TAB PO SCH (08:51)
[2021-03-14] MEDS: Sulfameth/Trimethoprim DS 800-160mg TAB PO SCH (12:20)
[2021-03-14] MEDS: Rosuvastatin 10 MG TAB PO SCH (21:19)
[2021-03-14] MEDS: Lantus 1000 UNITS/10 ML VIAL SC SCH (21:20)
[2021-03-14] MEDS: Transdermal Patch Removal TOP SCH (21:20)
[2021-03-15] MEDS: Allopurinol 100 MG TAB PO SCH (08:32)
[2021-03-15] MEDS: Glimepiride 2 MG TAB PO SCH (08:32)
[2021-03-15] MEDS: Citalopram 20 MG TAB PO SCH (08:33)
[2021-03-15] MEDS: Amlodipine 5 MG TAB PO SCH (08:33)
[2021-03-15] MEDS: Gabapentin 100 MG CAP PO SCH (08:34)
[2021-03-15] MEDS: Fluticasone Propionate Nasal Spray 16 gm Bottle NASAL SCH (08:34)
[2021-03-15] MEDS: Lactinex Tablet PO SCH (08:34)
[2021-03-15] MEDS: hydrALAZINE 25 MG TAB PO SCH ×2 (08:34→20:55)
[2021-03-15] MEDS: levETIRAcetam 500 mg/5 ml Oral Solution PO SCH ×2 (08:35→20:56)
[2021-03-15] MEDS: Magnesium Oxide 400 MG TAB PO SCH (08:35)
[2021-03-15] MEDS: Lidocaine 5% Patch TD SCH (08:35)
[2021-03-15] MEDS: Ubidecarenone 50 MG CAP PO SCH (08:36)
[2021-03-15] MEDS: Stress 600 With Zinc 1 TAB PO SCH (08:36)
[2021-03-15] MEDS: Tamsulosin HCl 0.4 MG CAP PO SCH (08:36)
[2021-03-15] MEDS: Sulfameth/Trimethoprim DS 800-160mg TAB PO SCH (12:28)
[2021-03-15] MEDS: HumaLOG 300 UNITS/3 ML VIAL SC PRN (12:29)
[2021-03-15] MEDS: Rosuvastatin 10 MG TAB PO SCH (20:55)
[2021-03-15] MEDS: Transdermal Patch Removal TOP SCH (20:56)
[2021-03-15] MEDS: Lantus 1000 UNITS/10 ML VIAL SC SCH (20:57)
[2021-03-16] MEDS: Lidocaine 5% Patch TD SCH (09:48)
[2021-03-16] MEDS: levETIRAcetam 500 mg/5 ml Oral Solution PO SCH ×2 (09:49→20:34)
[2021-03-16] MEDS: Ubidecarenone 50 MG CAP PO SCH (09:51)
[2021-03-16] MEDS: Gabapentin 100 MG CAP PO SCH (09:51)
[2021-03-16] MEDS: Stress 600 With Zinc 1 TAB PO SCH (09:54)
[2021-03-16] MEDS: Lactinex Tablet PO SCH (09:54)
[2021-03-16] MEDS: Calcitriol 0.25 MCG CAP PO SCH (09:57)
[2021-03-16] MEDS: Tamsulosin HCl 0.4 MG CAP PO SCH (09:57)
[2021-03-16] MEDS: Allopurinol 100 MG TAB PO SCH (09:57)
[2021-03-16] MEDS: Citalopram 20 MG TAB PO SCH (09:58)
[2021-03-16] MEDS: Magnesium Oxide 400 MG TAB PO SCH (09:58)
[2021-03-16] MEDS: Glimepiride 2 MG TAB PO SCH (09:58)
[2021-03-16] MEDS: Amlodipine 5 MG TAB PO SCH (09:59)
[2021-03-16] MEDS: hydrALAZINE 25 MG TAB PO SCH ×2 (10:00→20:34)
[2021-03-16] MEDS: Fluticasone Propionate Nasal Spray 16 gm Bottle NASAL SCH (10:00)
[2021-03-16] MEDS: HumaLOG 300 UNITS/3 ML VIAL SC PRN (12:42)
[2021-03-16] MEDS: Sulfameth/Trimethoprim DS 800-160mg TAB PO SCH (12:42)
[2021-03-16] MEDS: Rosuvastatin 10 MG TAB PO SCH (20:34)
[2021-03-16] MEDS: Lantus 1000 UNITS/10 ML VIAL SC SCH (20:35)
[2021-03-16] MEDS: Transdermal Patch Removal TOP SCH (20:52)
[2021-03-17] MEDS: levETIRAcetam 500 mg/5 ml Oral Solution PO SCH ×2 (09:48→20:59)
[2021-03-17] MEDS: Gabapentin 100 MG CAP PO SCH (09:52)
[2021-03-17] MEDS: Citalopram 20 MG TAB PO SCH (09:53)
[2021-03-17] MEDS: Glimepiride 2 MG TAB PO SCH (09:55)
[2021-03-17] MEDS: Lactinex Tablet PO SCH (09:55)
[2021-03-17] MEDS: Tamsulosin HCl 0.4 MG CAP PO SCH (09:55)
[2021-03-17] MEDS: Amlodipine 5 MG TAB PO SCH (09:55)
[2021-03-17] MEDS: Stress 600 With Zinc 1 TAB PO SCH (09:56)
[2021-03-17] MEDS: Ubidecarenone 50 MG CAP PO SCH (09:56)
[2021-03-17] MEDS: Fluticasone Propionate Nasal Spray 16 gm Bottle NASAL SCH (09:57)
[2021-03-17] MEDS: Allopurinol 100 MG TAB PO SCH (09:57)
[2021-03-17] MEDS: Lidocaine 5% Patch TD SCH (09:57)
[2021-03-17] MEDS: Magnesium Oxide 400 MG TAB PO SCH (09:57)
[2021-03-17] MEDS: hydrALAZINE 25 MG TAB PO SCH ×2 (09:57→20:58)
[2021-03-17] MEDS: Ondansetron ODT 4 MG TAB PO PRN (12:03)
[2021-03-17] MEDS: HumaLOG 300 UNITS/3 ML VIAL SC PRN (13:11)
[2021-03-17] MEDS: Sulfameth/Trimethoprim DS 800-160mg TAB PO SCH (13:12)
[2021-03-17] MEDS: Rosuvastatin 10 MG TAB PO SCH (20:59)
[2021-03-17] MEDS: Transdermal Patch Removal TOP SCH (21:00)
[2021-03-17] MEDS: Lantus 1000 UNITS/10 ML VIAL SC SCH (21:00)
[2021-03-18 05:44] VITALS: BMI 33.5
[2021-03-18 06:02] LABS: Anion Gap 11 mmol/L (10-20); BUN (Urea Nitrogen) 16 mg/dL (8.4-25.7); Calc. Creatinine Clearance 41 mL/min (70-130); Calcium 7.7 mg/dL (7.8-10.44); Carbon Dioxide 28 mmol/L (23-31); Chloride 100 mmol/L (98-107); Glucose 118 mg/dL (80-115); Potassium 3.3 mmol/L (3.5-5.1); Sodium 136 mmol/L (136-145)
[2021-03-18 06:03] LABS: #Eosinphils 0.1 thou/uL (0.0-0.7); #Lymphocytes 1.6 thou/uL (1.20-3.40); #Monocytes 0.8 thou/uL (0.11-0.59); #Neutrophils 5.6 thou/uL (1.40-6.50); %Basophils 0.4 % (0.0-1.0); %Eosinophils 1.4 % (0.0-10.0); %Lymphocytes 19.6 % (21.0-51.0); %Monocytes 9.8 % (0.0-10.0); %Neutrophils 68.8 % (42.0-75.0); Hemoglobin 9.2 g/dL (14.0-18.0); Mean Corpuscular HGB CONC 28.7 g/dL (32.0-36.0); Mean Corpuscular Hemoglobin 27.6 pg (27.0-31.0); Mean Corpuscular Volume 96.3 fL (78.0-98.0); Platelet Count 107 thou/uL (130-400); RBC Distribution Width 18.8 % (11.5-14.5); Red Blood Cell (RBC) Count 3.32 mill/uL (4.70-6.10); White Blood Cell (WBC) Count 8.2 thou/uL (4.8-10.8)
[2021-03-18] MEDS: Glimepiride 2 MG TAB PO SCH (09:42)
[2021-03-18] MEDS: Ubidecarenone 50 MG CAP PO SCH (09:43)
[2021-03-18] MEDS: Amlodipine 5 MG TAB PO SCH (09:45)
[2021-03-18] MEDS: Lactinex Tablet PO SCH (09:47)
[2021-03-18] MEDS: Gabapentin 100 MG CAP PO SCH (09:47)
[2021-03-18] MEDS: Allopurinol 100 MG TAB PO SCH (09:47)
[2021-03-18] MEDS: Magnesium Oxide 400 MG TAB PO SCH (09:50)
[2021-03-18] MEDS: hydrALAZINE 25 MG TAB PO SCH ×2 (09:50→21:32)
[2021-03-18] MEDS: Citalopram 20 MG TAB PO SCH (09:50)
[2021-03-18] MEDS: Tamsulosin HCl 0.4 MG CAP PO SCH (09:50)
[2021-03-18] MEDS: Fluticasone Propionate Nasal Spray 16 gm Bottle NASAL SCH (09:51)
[2021-03-18] MEDS: Stress 600 With Zinc 1 TAB PO SCH (09:51)
[2021-03-18] MEDS: levETIRAcetam 500 mg/5 ml Oral Solution PO SCH ×2 (09:53→21:31)
[2021-03-18] MEDS: Lidocaine 5% Patch TD SCH (09:54)
[2021-03-18] MEDS: HumaLOG 300 UNITS/3 ML VIAL SC PRN (12:10)
[2021-03-18] MEDS: Sulfameth/Trimethoprim DS 800-160mg TAB PO SCH (12:11)
[2021-03-18] MEDS ORDERED: Sodium Chloride 0.9% 10 ML ONE (14:52)
[2021-03-18] MEDS: Rosuvastatin 10 MG TAB PO SCH (21:32)
[2021-03-18] MEDS: Lantus 1000 UNITS/10 ML VIAL SC SCH (21:35)
[2021-03-18] MEDS: Transdermal Patch Removal TOP SCH (21:35)
[2021-03-19] MEDS: Allopurinol 100 MG TAB PO SCH (09:21)
[2021-03-19] MEDS: Glimepiride 2 MG TAB PO SCH (09:21)
[2021-03-19] MEDS: Amlodipine 5 MG TAB PO SCH (09:21)
[2021-03-19] MEDS: Citalopram 20 MG TAB PO SCH (09:22)
[2021-03-19] MEDS: Fluticasone Propionate Nasal Spray 16 gm Bottle NASAL SCH (09:22)
[2021-03-19] MEDS: Gabapentin 100 MG CAP PO SCH (09:23)
[2021-03-19] MEDS: Lactinex Tablet PO SCH (09:24)
[2021-03-19] MEDS: hydrALAZINE 25 MG TAB PO SCH ×2 (09:24→21:20)
[2021-03-19] MEDS: Magnesium Oxide 400 MG TAB PO SCH (09:25)
[2021-03-19] MEDS: levETIRAcetam 500 mg/5 ml Oral Solution PO SCH ×2 (09:25→21:19)
[2021-03-19] MEDS: Lidocaine 5% Patch TD SCH (09:25)
[2021-03-19] MEDS: Ubidecarenone 50 MG CAP PO SCH (09:26)
[2021-03-19] MEDS: Stress 600 With Zinc 1 TAB PO SCH (09:26)
[2021-03-19] MEDS: Tamsulosin HCl 0.4 MG CAP PO SCH (09:26)
[2021-03-19] MEDS: Calcitriol 0.25 MCG CAP PO SCH (11:38)
[2021-03-19] MEDS: Sulfameth/Trimethoprim DS 800-160mg TAB PO SCH ×2 (12:50→17:31)
[2021-03-19] MEDS: Rosuvastatin 10 MG TAB PO SCH (21:20)
[2021-03-19] MEDS: Transdermal Patch Removal TOP SCH (21:23)
[2021-03-19] MEDS: Lantus 1000 UNITS/10 ML VIAL SC SCH (21:32)
[2021-03-20] MEDS: Amlodipine 5 MG TAB PO SCH (08:16)
[2021-03-20] MEDS: Glimepiride 2 MG TAB PO SCH (08:16)
[2021-03-20] MEDS: Allopurinol 100 MG TAB PO SCH (08:16)
[2021-03-20] MEDS: Fluticasone Propionate Nasal Spray 16 gm Bottle NASAL SCH (08:17)
[2021-03-20] MEDS: Citalopram 20 MG TAB PO SCH (08:17)
[2021-03-20] MEDS: Gabapentin 100 MG CAP PO SCH (08:17)
[2021-03-20] MEDS: hydrALAZINE 25 MG TAB PO SCH ×2 (08:18→21:24)
[2021-03-20] MEDS: levETIRAcetam 500 mg/5 ml Oral Solution PO SCH ×2 (08:18→21:24)
[2021-03-20] MEDS: Magnesium Oxide 400 MG TAB PO SCH (08:19)
[2021-03-20] MEDS: Stress 600 With Zinc 1 TAB PO SCH (08:19)
[2021-03-20] MEDS: Tamsulosin HCl 0.4 MG CAP PO SCH (08:19)
[2021-03-20] MEDS: Ubidecarenone 50 MG CAP PO SCH (08:19)
[2021-03-20] MEDS: Lidocaine 5% Patch TD SCH (08:19)
[2021-03-20] MEDS: Lactinex Tablet PO SCH (08:20)
[2021-03-20] MEDS: Ondansetron ODT 4 MG TAB PO PRN (18:22)
[2021-03-20] MEDS: Rosuvastatin 10 MG TAB PO SCH (21:24)
[2021-03-20] MEDS: Lantus 1000 UNITS/10 ML VIAL SC SCH (21:25)
[2021-03-20] MEDS: Transdermal Patch Removal TOP SCH (21:27)
[2021-03-21] MEDS: Lidocaine 5% Patch TD SCH (08:57)
[2021-03-21] MEDS: Allopurinol 100 MG TAB PO SCH (08:58)
[2021-03-21] MEDS: Citalopram 20 MG TAB PO SCH (08:58)
[2021-03-21] MEDS: Lactinex Tablet PO SCH (08:58)
[2021-03-21] MEDS: Glimepiride 2 MG TAB PO SCH (08:58)
[2021-03-21] MEDS: Stress 600 With Zinc 1 TAB PO SCH (08:58)
[2021-03-21] MEDS: Magnesium Oxide 400 MG TAB PO SCH (08:58)
[2021-03-21] MEDS: Gabapentin 100 MG CAP PO SCH (08:59)
[2021-03-21] MEDS: Ubidecarenone 50 MG CAP PO SCH (09:00)
[2021-03-21] MEDS: hydrALAZINE 25 MG TAB PO SCH ×2 (09:00→20:48)
[2021-03-21] MEDS: levETIRAcetam 500 mg/5 ml Oral Solution PO SCH ×2 (09:00→20:46)
[2021-03-21] MEDS: Fluticasone Propionate Nasal Spray 16 gm Bottle NASAL SCH (09:00)
[2021-03-21] MEDS: Tamsulosin HCl 0.4 MG CAP PO SCH (09:01)
[2021-03-21] MEDS: Acetaminophen 325 MG TAB PO PRN ×2 (09:01→21:47)
[2021-03-21] MEDS: Amlodipine 5 MG TAB PO SCH (09:02)
[2021-03-21] MEDS: Calcitriol 0.25 MCG CAP PO SCH (09:06)
[2021-03-21] MEDS: Rosuvastatin 10 MG TAB PO SCH (20:48)
[2021-03-21] MEDS: Lantus 1000 UNITS/10 ML VIAL SC SCH (20:49)
[2021-03-21] MEDS: Transdermal Patch Removal TOP SCH (20:50)
[2021-03-22] MEDS: Ondansetron ODT 4 MG TAB PO PRN (08:43)
[2021-03-22] MEDS: Lidocaine 5% Patch TD SCH (08:47)
[2021-03-22] MEDS: Ubidecarenone 50 MG CAP PO SCH (08:48)
[2021-03-22] MEDS: levETIRAcetam 500 mg/5 ml Oral Solution PO SCH (08:48)
[2021-03-22] MEDS: Stress 600 With Zinc 1 TAB PO SCH (08:48)
[2021-03-22] MEDS: Lactinex Tablet PO SCH (08:48)
[2021-03-22] MEDS: Magnesium Oxide 400 MG TAB PO SCH (08:48)
[2021-03-22] MEDS: Tamsulosin HCl 0.4 MG CAP PO SCH (08:48)
[2021-03-22] MEDS: hydrALAZINE 25 MG TAB PO SCH (08:48)
[2021-03-22] MEDS: Allopurinol 100 MG TAB PO SCH (08:49)
[2021-03-22] MEDS: Glimepiride 2 MG TAB PO SCH (08:49)
[2021-03-22] MEDS: Amlodipine 5 MG TAB PO SCH (08:49)
[2021-03-22] MEDS: Gabapentin 100 MG CAP PO SCH (08:50)
[2021-03-22] MEDS: Citalopram 20 MG TAB PO SCH (08:50)
[2021-03-22] MEDS: Acetaminophen 325 MG TAB PO PRN (08:54)
[2021-03-22] MEDS: Fluticasone Propionate Nasal Spray 16 gm Bottle NASAL SCH (08:59)
[2021-03-22] MEDS: Mag-Al Plus 1200 MG/1200 MG/120 MG/30 ML UDCUP PO PRN (12:45)
[2021-03-22 15:05] VITALS: BP 125/71; TEMP 97.3
== END 2021-03-22 14:50 | disposition home health service (06) | DRG 683 ==
LOC: NAV ACUTE 19:38
PROVIDERS: ADMIT Internal Medicine; ATTEND Internal Medicine
DX: N17.9 Acute kidney failure, unspecified (principal); I13.2 Hypertensive heart and chronic kidney disease with heart failure and with stage 5 chronic kidney disease, or end stage renal disease; I50.42 Chronic combined systolic (congestive) and diastolic (congestive) heart failure; M48.56XA Collapsed vertebra, not elsewhere classified, lumbar region, initial encounter for fracture; G93.49 Other encephalopathy; N18.6 End stage renal disease; E11.22 Type 2 diabetes mellitus with diabetic chronic kidney disease; I25.10 Atherosclerotic heart disease of native coronary artery without angina pectoris; K21.9 Gastro-esophageal reflux disease without esophagitis; E78.5 Hyperlipidemia, unspecified; I48.0 Paroxysmal atrial fibrillation; M48.061 Spinal stenosis, lumbar region without neurogenic claudication; R53.81 Other malaise; E66.9 Obesity, unspecified; M51.16 Intervertebral disc disorders with radiculopathy, lumbar region; F41.9 Anxiety disorder, unspecified; F32.9 Major depressive disorder, single episode, unspecified; D63.1 Anemia in chronic kidney disease; E11.42 Type 2 diabetes mellitus with diabetic polyneuropathy; K59.00 Constipation, unspecified; Z20.822 Contact with and (suspected) exposure to COVID-19; G40.909 Epilepsy, unspecified, not intractable, without status epilepticus; K29.70 Gastritis, unspecified, without bleeding; J30.9 Allergic rhinitis, unspecified; Z99.2 Dependence on renal dialysis; Z95.1 Presence of aortocoronary bypass graft; Z98.890 Other specified postprocedural states; Z87.891 Personal history of nicotine dependence; Z79.899 Other long term (current) drug therapy; Z79.4 Long term (current) use of insulin; Z88.1 Allergy status to other antibiotic agents; Z88.8 Allergy status to other drugs, medicaments and biological substances; Z68.33 Body mass index [BMI] 33.0-33.9, adult
CPT/HCPCS: 36416; 72100; 80048; 80177; 85025; J1815; J7512; Q0162

== ENCOUNTER 2021-06-20 15:57 | Emergency (ER) | payer MEDICARE, MEDICAID | END 2021-06-20 17:40 | disposition home or self-care (01) | LOC: NAV ERS 15:57 | DX: T82.49XA Other complication of vascular dialysis catheter, initial encounter (principal); I13.0 Hypertensive heart and chronic kidney disease with heart failure and stage 1 through stage 4 chronic kidney disease, or unspecified chronic kidney disease; E11.22 Type 2 diabetes mellitus with diabetic chronic kidney disease; N18.9 Chronic kidney disease, unspecified; I50.9 Heart failure, unspecified; I48.91 Unspecified atrial fibrillation; E78.5 Hyperlipidemia, unspecified; K21.9 Gastro-esophageal reflux disease without esophagitis; Z79.4 Long term (current) use of insulin; Z79.899 Other long term (current) drug therapy | CPT/HCPCS: 99283 ==

== ENCOUNTER 2021-11-01 09:25 | Outpatient (CLI) | payer MEDICARE, MEDICAID | END 2021-11-01 09:26 | disposition home or self-care (01) | LOC: NAV CT 09:25 | PROVIDERS: ATTEND Neurological Surgery | DX: I62.00 Nontraumatic subdural hemorrhage, unspecified (principal); G93.89 Other specified disorders of brain | CPT/HCPCS: 70450 ==

== ENCOUNTER 2021-12-25 11:59 | Emergency (ER) | payer MEDICARE, MEDICAID | END 2021-12-25 12:30 | disposition home or self-care (01) | LOC: NAV ERS 11:59 | DX: S00.412A Abrasion of left ear, initial encounter (principal); S00.31XA Abrasion of nose, initial encounter; H65.92 Unspecified nonsuppurative otitis media, left ear; I13.0 Hypertensive heart and chronic kidney disease with heart failure and stage 1 through stage 4 chronic kidney disease, or unspecified chronic kidney disease; E11.22 Type 2 diabetes mellitus with diabetic chronic kidney disease; N18.9 Chronic kidney disease, unspecified; I50.9 Heart failure, unspecified; I48.91 Unspecified atrial fibrillation; J45.909 Unspecified asthma, uncomplicated; I25.10 Atherosclerotic heart disease of native coronary artery without angina pectoris; K21.9 Gastro-esophageal reflux disease without esophagitis; E78.5 Hyperlipidemia, unspecified; M10.9 Gout, unspecified; W50.4XXA Accidental scratch by another person, initial encounter; Z87.19 Personal history of other diseases of the digestive system; Z86.73 Personal history of transient ischemic attack (TIA), and cerebral infarction without residual deficits; Z79.4 Long term (current) use of insulin; Z79.899 Other long term (current) drug therapy | CPT/HCPCS: 99281 ==